=== PATIENT | female | born 1960 | race Caucasian/White ===

== ENCOUNTER 2016-10-04 12:23 | Day surgery (SDC) | payer OTHER ==
[~2016-10-04] VITALS: Ht 166.4 cm; Wt 78.0 kg
[2016-10-04] VITALS (7 sets, daily range): BP systolic 108–123; BP diastolic 66–71; PULSE 66–78; RESP 14–17; O2SAT 98–100
[~2016-10-04 12:23] MED LIST: ASPI-628 PO; CHOL200020 PO; GLUC100016 PO; IBUP200C PO; Lactated Ringer's 1,000 ML IV SCH
[2016-10-04] MEDS ORDERED: Propofol 10,000 mCg/mL 20 mL Inj ONE (12:24)
[2016-10-04] MEDS ORDERED: Lidocaine PF 1% 30 mL Inj ONE (12:24)
[2016-10-04] MEDS ORDERED: fentaNYL-PF 50 mCg/mL 2 mL Inj ONE (12:24)
[2016-10-04] MEDS ORDERED: Ondansetron 2 mg/mL 2 mL Inj ONE (12:24)
[2016-10-04] MEDS ORDERED: Lactated Ringer's 1,000 ML IV ONE (12:49)
[2016-10-04] MEDS ORDERED: Lactated Ringer's 1,000 ML IV SCH (12:58)
[2016-10-04] MEDS ORDERED: Lactated Ringer's 500 ML IV PRN (12:58)
[2016-10-04] MEDS ORDERED: fentaNYL-PF 50 mCg/mL 2 mL Inj IVPUSH PRN (13:00)
[2016-10-04] MEDS ORDERED: Atropine 0.4 mg/mL Inj IVPUSH PRN (13:00)
[2016-10-04] MEDS ORDERED: EPHEDrine Sulfate 50 mg/mL Inj IVPUSH PRN (13:00)
[2016-10-04] MEDS ORDERED: Dexamethasone 4 mg/mL Inj IVPUSH PRN (13:00)
[2016-10-04] MEDS ORDERED: HYDROmorphone 1 mg/mL Inj IVPUSH PRN (13:00)
[2016-10-04] MEDS ORDERED: Ondansetron 2 mg/mL 2 mL Inj IVPUSH PRN (13:00)
[2016-10-04] MEDS ORDERED: Labetalol 5 mg/mL 4 mL Inj IV PRN (13:00)
[2016-10-04] MEDS ORDERED: hydrALAZINE 20 mg/mL Inj IVPUSH PRN (13:00)
[2016-10-04] MEDS ORDERED: Phenylephrine 10,000 mCg/mL Inj IVPUSH PRN (13:00)
[2016-10-04] MEDS ORDERED: MetoCLOpramide 5 mg/mL 2 mL Inj IVPUSH PRN (13:00)
--- NOTE | 2016-10-04 13:24 | PCM.HPANE ---
Patient Data Date of Service: Oct 04, 2016 Surgeon Admitting Provider: Attending Provider:Troy Sanchez MD Primary Care Physician:Glenroy Miranda PA-C Other Provider:Dorinda Low Anesthesia Reason for Visit Right Neck Mass Ht/WT & BMI Height (Feet): 5 Height (Inches): 5.5 Weight (Kilograms): 78.018 Body Mass Index 28.00 Allergies Coded Allergies: No Known Allergies (Verified Allergy, Unknown, 04/19/14) Past Anesthesia History Anesthesia History: Denies:: Abnormal Airway, Anesthesia Reactions, Difficult Intubation, Fam Anesthesia Reaction, Fam Malignant Hypertherm, Malignant Hyperthermia Diabetes History Hx Diabetes?: No MRSA MRSA: No Medications Blood Thinner: Aspirin Hypertension Medication: No Home Meds Incl Beta Miroslava: No Reported Medications Aspirin (Aspir 81)81 Mg Tablet.dr81 Mg PO DAILY Ref 0 04/19/14 Ibuprofen 200 Mg Fdwjkpg802 Mg PO QID PRN For Pain Ref 0 04/19/14 Glucosamine Sulfate 2Kcl (Glucosamine)1,000 Mg Tablet1,000 Mg PO DAILY 04/19/14 Cholecalciferol (Vitamin D3) (Vitamin D-3)2,000 Unit Capsule2,000 Unit PO DAILY 04/19/14 History History of ENT Problems?: Yes HEENT History: Denies:: Abnormal Airway Cataracts (S/P EYE PROCEDURE) Difficult Intubation Hearing Problem Denture Type: None Teeth Condition: Within Normal Limits Hx of Heart Problems?: No Cardiovascular History: Denies:: Heart Murmur Hypertension Hx of Respiratory Problem?: Yes Respiratory History: Positive for:: Cough (recent URI) Denies:: Use of C-PAP Machine Hx Neurologic Problems?: No Neurological History: Denies:: CVA Hx of GI Problems?: Yes Other GI Pertinent History: C/OF IBS Hx of Problems?: No HX of Peritoneal Dialysis: No Female Hx: Denies:: Currently Skin History: Positive for:: History Skin Disorders? (OCCAS. RASH) Denies:: Pressure Ulcers Hx Musculoskeletal Problems?: Yes Musculoskeletal History: Positive for:: Musculoskeletal Trauma (S/P KNEE RPR' S X2) Denies:: Back Injury (C/OF LOWER BACK PAIN) Hx of Psycho/Social Problems?: No Hx Surgeries?: Yes (2 left knee,SPINE SURGERY,EYE PROCEDURE) Hx Any Other Health Problems?: Yes Other History: Denies:: Cancer Endocrine Disease Hospitalization Thyroid Disease Hx Diabetes: No Hx Alcohol Use: Yes (OCCAS)Hx Substance Use: No Smoking Status: Never Smoker Have You Smoked inLast 12 mo: No Stop/Bang Treated for Sleep Apnea?: No Do You Have a CPAP Machine?: No S-Snoring: Do You Snore Loudly: No T-Tired: feel tired, fatigued: No O-Obsered: Observed not breath: No P-Blood Pressure: treated: No B- Body Mass Index > 35 kg/m2: No A- Age over 50: Yes N- Neck Large Circumference: No G- Gender Male: No KADE Total Score: 1 KADE Risk Assessment: Low Risk, <3 Yes Risk Assessment Category Category 1A: Patient has history of documented sleep apnea, and HAS NOT received any narcotic, sedative or anesthesia administration during this stay. Category 1B: Patient has history of documented sleep apnea, and HAS received any narcotic , sedative or anesthesia administration during this stay Category 2: Patient has SUSPECTED Obstructive Sleep Apnea, and HAS received any narcotic , sedative or anesthesia administration during this stay. Category 3: Patient has SUSPECTED Obstructive Sleep Apnea and HAS NOT received narcotic, sedative or anesthesia administration during this stay. Category 4: Outpatient in Procedural Areas with known sleep apnea or who screen positive for High Risk via the STOP/BANG questionnaire. Exam Exam Vital Signs Vital Signs Date Time Temp Pulse Resp B/P Pulse Ox O2 Delivery O2 Flow Rate FiO2 10/04/16 12:46 36.2 74 14 108/70 99 Room Air General Appearance: Alert, Oriented X3, Cooperative HEENT/AIRWAY: MP 2, Neck Movement, Mouth Opening Lungs: Clear to Auscultation, Normal Air Movement Heart: Regular Rate/Rhythm, Normal S1, Normal S2 Meds/Labs/Diagnostics Admission Meds Current Medications Lactated Ringer's (Lr) 1,000 ml @ ud STK-MED ONCE IV Last administered on t 12:49; Start 10/04/16 at 12:49; Stop 10/04/16 at 12:50; Status DC Plan Impression Patient chart reviewed, patient interviewed and anesthestic plan with risks, benefits, and alternatives discussed, and informed consent obtained. ASA Physical Status: ASA2 Mod Systemic Disease Anesthetic Plan: GA Bene/Risks/Altern/Consents: Yes HP Complete Prior to Induction: Yes Octavio Tijerina MD Oct 04, 2016 12:57
[2016-10-04] MEDS ORDERED: Bupivacaine-MPF 0.25% 30 mL Inj INFILTRATE ONE (13:33)
[2016-10-04] MEDS ORDERED: oxyCODONE-Acetamin 5-325 mg Tablet PO PRN (14:25)
--- NOTE | 2016-10-04 23:16 | OP ---
[address] [address] OPERATIVE REPORT PATIENT: BHUPINDER FOOTE : 1960 MR#: [id number] ADMIT: 10/04/2016 JOB ID: [id number] DATE OF SURGERY: 10/04/2016 ANESTHESIA: General. PREOPERATIVE DIAGNOSIS(ES): Right cervical neck mass concerning for malignancy. POSTOPERATIVE DIAGNOSIS(ES): Right cervical neck mass concerning for malignancy. PROCEDURE: Excisional biopsy of right cervical neck mass. SURGEON: Dr. Troy Sanchez. RACING SECRETARY: Cristhian Fabian PA-C (the after school program assistant was required for the safe and timely completion of the case). COMPLICATIONS: None. ESTIMATED BLOOD LOSS: Less than 5 mL. CONDITION: Satisfactory. SPECIMEN: Right neck mass sent for cultures, flow cytometry, and gross tissue examination. FINDINGS: It appeared like this was probably a lymph node but was invasive to the surrounding tissue. It was adherent to the fascia of the sternocleidomastoid. INDICATIONS/SIGNIFICANT HISTORY: The patient is a 56-year-old female who about six weeks ago noted a right neck mass that she believes has been slowly growing. It was tender. It had not drained anything. An ultrasound was obtained by her PCP which showed a complex subcutaneous soft tissue mass measuring approximately 1 cm in size. No abnormal lymph nodes were identified. She was referred to me. By this time, it her grown some and she had no high-risk features for head and neck cancer, but given the appearance I was concerned and recommended biopsy. OPERATIVE TECHNIQUE: The patient was taken to the operating and placed in supine position. General anesthesia was administered. The right neck was prepped and draped in standard surgical fashion and a procedural pause was performed. Local anesthetic was injected. I made an approximately 3-4 cm incision directly over the mass in the natural skin crease. Dissection carried down through the skin. The mass was adherent to the skin. It was also adherent to the fascia of the right sternocleidomastoid. We used electrocautery to dissect this around and dissected it free. It was then sectioned and handed off for the various cultures and studies. The platysma was approximated with 3-0 Vicryl. The skin was closed using 4-0 Monocryl. Dermabond was applied. The entire procedure was well tolerated without complication. [facility]
--- NOTE | 2016-10-12 10:12 | PATH ---
SURGICAL PATHOLOGY Attending Physician:Troy Sanchez MD CASE STATUS: Signed Out PATIENT NAME: BHUPINDER FOOTE PID: [id number] : 1960 DATE COLLECTED:10/04/2016 00:00 SPECIMEN: Mass, NOS CLINICAL HISTORY: 1). RIGHT NECK MASS FINAL DIAGNOSIS: Preliminary Diagnosis (10/12/2016): Right neck mass, excisional biopsy: 1. Soft tissue with involvement by a large B-cell non-Hodgkin lymphoma with a high Bw-86-zsweylp proliferative rate (see Comments) 2. Adjacent serous salivary gland without morphologic abnormality Flow cytometric analysis ([id number]): Right neck mass, biopsy: Partially degenerate sample with no abnormal B-cell or T-cell population identified (see Flow Comments) ICD-10 code(s) C85.99 (non-Hodgkin lymphoma, unspecified; extranodal and solid organ sites) NOTE: Unstained sections of block A are being forwarded for FISH studies to evaluate for MYC, BCL2, and BCL6 gene rearrangements in this large B-cell lymphoma. An EBER1 in-situ hybridization study will also be performed on the tissue. A final diagnosis will be issued in an Addendum when these additional studies are completed. Flow cytometry Comments: No evidence of B-cell or T-cell non-Hodgkin lymphoma is identified by flow cytometry among the most viable cells. Note that T-cells comprise 97% of the viable lymphocytes in this specimen, with remarkably few convincing CD19+/CD20+ B-cells identified. Correlation with the concurrent tissue morphology is required for definitive diagnosis ([id number]). Note that Hodgkin lymphoma, certain non-Hodgkin lymphomas (e.g. T-cell/histiocyte-rich large B-cell lymphoma), and a non-hematopoietic neoplasm would not be detected by these flow cytometry studies. Flow cytometric analysis indicates that the viable leukocytes are essentially all lymphocytes, which include 0.3% B-cells and 97% T-cells. The rare mature B-cells have a normal kappa:lambda ratio of 1.1. The T-cells have a normal CD4:CD8 ratio of 1.7. GROSS DESCRIPTION: The specimen is received in formalin, labeled with the patient's name, sublabeled as right neck mass and consists of a piece of caro yellow rubbery tissue (2.5 x 1.7 x 1.3 cm). The cut surface is pale yellow semitranslucent and homogenous. Ink code: black-resection margin. Section code: (A-C) tissue, series sections. Specimen entirely submitted. 10/07/16 MICRO DESCRIPTION: H&E-stained sections of blocks A-C reveals portions of lobulated, serous salivary gland tissue without significant architectural distortion adjacent to fibroadipose, peripheral nerves, and skeletal muscle that is engulfed by an atypical, dense lymphoid infiltrate. There is no distinct tissue with architecture reminiscent of a lymph node in this specimen. The atypical lymphoid infiltrate is predominantly large in size, and diffusely scattered in a background of predominantly small to intermediate-sized lymphocytes. No nodular component is appreciated among the lymphocytes. The large atypical cells have variably open to coarse chromatin and one or more prominent nucleoli. The mitotic rate is brisk, and apoptotic cells are identified, but no zones of geographic necrosis are seen. There is no significant plasmacytic, eosinophilic, or neutrophilic inflammatory infiltrate. Select immunohistochemical studies were performed on block A for further evaluation. The large atypical cells are B-cells with uniform, strong expression of CD20, variable expression of Pax5, and uniform coexpression of bcl-2 and MUM1, with variable to uniform expression of bcl-6 (with variable intensity). The atypical B-cells are negative for CD5, CD10, CD30, and cyclin D1, and are also negative for p53 overexpression by immunohistochemistry. There is no definitive expression or restriction of either kappa or lambda light chains on the abnormal B-cells; and only rare plasma cells are evident in the background. The background smaller lymphocytes are CD3+/CD5+ T-cells. The Tp-08-sqvywlj proliferative rate among the abnormal B-cells is very high, estimated at greater than 95%. ICD-9 CODES: CPT CODES: 1: 06809, 47465, 78808(13) Electronically Signed Out Rani Michelle M.D.,[facility] [address], [place] [address] Technical component performed at [facility], [facility] [address], [place], [address]
== END 2016-10-04 23:59 | disposition home or self-care (01) ==
LOC: SAS 12:23
PROVIDERS: ATTEND General Practice
DX: C85.81 Other specified types of non-Hodgkin lymphoma, lymph nodes of head, face, and neck (principal)
CPT/HCPCS: 21550; 87070; 87075; 87077; 87186; 87205; 88184; 88185; J2250; J2405; J3010; J7120

== ENCOUNTER 2016-11-22 08:08 | Inpatient (IN) | payer OTHER ==
[2016-11-22] VITALS (15 sets, daily range): BP systolic 96–115; BP diastolic 60–80; PULSE 67–95; RESP 12–20; O2SAT 96–100
[~2016-11-22] VITALS: Ht 167.6 cm; Wt 75.5 kg
[~2016-11-22 08:08] MED LIST changes: -ASPI-628 PO; -CHOL200020 PO; -GLUC100016 PO; +GLUC500T12 PO; -IBUP200C PO; +LORA0.5T PO; -Lactated Ringer's 1,000 ML IV SCH; +MV-M1CAP15 PO; +OMEG1CAP99 PO; +TURM500C3 PO
[2016-11-22] MEDS ORDERED: Ondansetron 2 mg/mL 2 mL Inj IVPUSH PRN (08:30)
[2016-11-22] MEDS ORDERED: ACET-2766 PO (08:35)
--- NOTE | 2016-11-22 11:46 | NUR ---
Admit To OSC room 1028 at 08:15. Pastora Pinto, admit RN to complete admit med rec and admit process. Tosin Bolanos, chain maker machine in to answer pt questions about chemotherapy regimen. Pt to PICC suite at 11:47 for line placement.
[2016-11-22] MEDS ORDERED: Sodium Chloride LOK Flush 10 mL Syringe IVFLUSH PRN ×2 (12:30)
[2016-11-22] MEDS ORDERED: RITUXIMAB IV SCH (13:00)
[2016-11-22] MEDS ORDERED: SODIUM CHLORIDE 0.9% IV SCH ×2 (13:00)
[2016-11-22] MEDS ORDERED: ONDANSETRON IV SCH (13:00)
[2016-11-22] MEDS: 0.9% Sodium Chloride 1,000 ML IV SCH (13:10)
[2016-11-22] MEDS: predniSONE 20 mg Tablet PO SCH ×2 (13:11→20:53)
--- NOTE | 2016-11-22 14:17 | DRSVH ---
PROCEDURE: X-RAY PICC LINE PLACEMENT BY NURSE ([id number]) INDICATIONS: CHEMO COMPARISON: None. FINDINGS: PICC was placed by the intravenous therapy team from the left side. Fluoroscopic spot iris m demonstrates tip projected over the lower SVC. IMPRESSION: Tip of PICC projected over the lower SVC . Dictated by: Mike DAWSON Interpreted: Alejo Hernandez MD on 11/22/2016 at 13:24 Approved by: Alejo Hernandez M.D. on 11/22/2016 at 14:15
[2016-11-22] MEDS: Trimethoprim-Sulfa 160 mg-800 mg Tablet PO SCH (16:39)
--- NOTE | 2016-11-22 17:51 | PCM.HPMED ---
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 She is followed by Dr. Manley from oncology and is admitted today per Dr. Manley's recommendation with plan of moving forward with front-line therapy with dose adjusted R-EPOCH. Patient otherwise denies any issues or complaints other than a mild frontal headache and a little anxiety about the treatment but otherwise says feels upbeat and eager to start the treatment. Review of Systems: Constitutional: Negative, except as otherwise mentioned in the history above. Ophthalmologic: Negative, except as otherwise mentioned in the history above. Cardiovascular: Negative, except as otherwise mentioned in the history above. Respiratory: Negative, except as otherwise mentioned in the history above. Gastrointestinal: Negative, except as otherwise mentioned in the history above. Genitourinary: Negative, except as otherwise mentioned in the history above. Musculoskeletal: Negative, except as otherwise mentioned in the history above. Neurological: Negative, except as otherwise mentioned in the history above. Psychiatric: Negative, except as otherwise mentioned in the history above. Hematologic/Lymphatic: Negative, except as otherwise mentioned in the history above. Allergic/Immunologic: Negative, except as otherwise mentioned in the history above. Allergies Coded Allergies: No Known Allergies (Verified Allergy, Unknown, 11/22/16) Home Medications Acetaminophen 650 Mg PO DAILY Lorazepam 0.5 Mg PO QID PRN Exam Vital Signs & I/O Vital Sign- Last 8 Hours Date Time Temp Pulse Resp B/P Pulse Ox O2 Delivery O2 Flow Rate FiO2 11/22/16 17:43 36.8 91 18 106/60 98 Room Air 11/22/16 17:14 37.4 93 18 105/71 99 Room Air 11/22/16 16:42 36.8 91 16 102/72 99 Room Air 11/22/16 16:10 36.6 81 18 101/67 97 Room Air 11/22/16 15:47 36.7 81 18 110/73 98 Room Air 11/22/16 15:18 36.6 78 18 103/68 97 Room Air 11/22/16 14:35 83 11/22/16 14:28 36.9 82 18 115/80 98 Room Air 11/22/16 12:49 36.8 90 18 108/79 99 Room Air PMH 1. Diffuse large B-cell lymphoma, non germinal cell type, non double hit as noted in the HPI 2. Lower back pain secondary to degenerative joint disease, as well as a slipped disk. Surgical History 1. Laminectomy in the lower back in November 2015. 2. Bilateral knee surgery. Family History She has two children, a son age 27, a daughter age 25, both healthy. A sister and a brother who are otherwise healthy. Father from complications of head and neck cancer. He was a heavy smoker and drinker. Paternal grandfather with bone cancer, unknown primary. Paternal grandmother with ovarian cancer diagnosed in her 70s. Social History Hx Alcohol Use: No Hx Substance Use: No Hx Tobacco Use: No Smoking Status: Never Smoker Exam Vital Signs Vital Sign - Last Date Time Temp Pulse Resp B/P Pulse Ox O2 Delivery O2 Flow Rate FiO2 11/22/16 17:43 36.8 91 18 106/60 98 Room Air General: Alert, Oriented X3, Cooperative, No Acute Distress Head: Normal Eyes: PERRLA, EOMI, Scleral Anicteric Nose: Mucous Membr Moist/[place] Mouth: Mucous Membr Moist/[place] Neck: Supple Chest & Lungs: Chest Wall Normal, Clear to auscultation & percussion Cardiovascular: Regular Rate/Rhythm Pulses: NL carotid, radial, femoral, DP, PT Abdomen: Non-tender, Non-distended, Normoactive bowel tones, Soft Extremities: No cyanosis/clubbing/edma bilat Skin: Other (no ulcer/rash) Neurological: Grossly Neurologically Intact, Cranial Nerves 2-12 Intact, Normal Speech Additional Information: Psych: Calm and appropriate Lab and Diagnostics Additional Diagnostics: Date of Service: 11/22/16 1100 PROCEDURE: X-RAY PICC LINE PLACEMENT BY NURSE ([id number]) IMPRESSION: Tip of PICC projected over the lower SVC . Dictated by: Mike DAWSON Interpreted: Alejo Hernandez MD on 11/22/2016 at 13:24 Approved by: Alejo Hernandez M.D. 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 # Diffuse large B-cell lymphoma, present on admission. - Plan for dose adjusted R-EPOCH, cycle one, day one to be administered as an inpatient scheduled for November 22, 2016. - Plan to complete day five of therapy on November 26, 2016. - Continue with supportive care including ondansetron 8 mg IV q.12 h. as needed for nausea and the lorazepam 0.5 mg q. 6 hours as needed for anxiety. - Followup in the oncology clinic has been scheduled for November 27, 2016, at which time she will start her three days of Granix. - Clinic evaluation on November 28, 2016, for day two. - Followup repeat labs in am Expected length of hospital stay is greater than 2 midnights as noted above. GI Prophylaxis: Not indicated VTE Prophylaxis: Sub-Q Heparin (Unfractionated) Resuscitation Status: CPR: Attempt Resuscitation (discussed and verified with patient) Time spent 45 min Job Barclay Nov 22, 2016 17:51
[2016-11-22] MEDS ORDERED: Polyethylene Glycol (PEG) 17 Gm Powder PO PRN (18:10)
[2016-11-22] MEDS ORDERED: Alum-Mag Hydrox-Simeth 30 mL Suspension PO PRN (18:10)
[2016-11-22] MEDS: ONDANSETRON IV SCH (19:24)
[2016-11-22] MEDS: SODIUM CHLORIDE 0.9% IV SCH (19:24)
[2016-11-22] MEDS: DOXORUBICIN IV SCH (20:30)
[2016-11-22] MEDS: VINCRISTINE IV SCH (20:30)
[2016-11-22] MEDS: [UNRECOGNIZED DRUG - OTHER] IV SCH (20:30)
[2016-11-22] MEDS: ETOPOSIDE IV SCH (20:30)
[2016-11-22] MEDS: LORazepam 0.5 mg Tablet PO PRN (23:20)
[2016-11-23] VITALS (8 sets, daily range): BP systolic 91–104; BP diastolic 49–64; PULSE 59–92; RESP 16–20; O2SAT 96–99
[2016-11-23] MEDS: 0.9% Sodium Chloride 1,000 ML IV SCH ×2 (02:23→15:43)
--- NOTE | 2016-11-23 05:07 | NUR ---
Chemo Pt tolerating chemo infusion very well; Rituximab infusion finished at shift change, Vincristine/Etoposide/Doxirubicin verified and begun by 2029 for 24 hour infusion. 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 Pt has strong family support and positive attitude and experiencing some overwhelming sadness and anxiety related to treatment outcomes. Brisk blood return through newly placed PICC line, frequent rechecks show continued blood return. In am, pt notes slight SOB, faintly increased crackles bilateral lower lungs; will defer to am Md rounds for any change to fluid rate. Hourly rounding ongoing.
--- NOTE | 2016-11-23 05:31 | NUR ---
A-fib Tele monitor reported change in heart rhythm to a-fib rate at 69 by approx 0130. Pt reports being able to feel a faint irregularity and feels occasional urge for short, dry cough. She is able to confirm that she has felt this off and on over past several months but has not been under medical care for it, had not taken it to her primary care physician. In am reports mild SOB, "I just can't take as deep a breath as usual." Mild leg edema is decreased from night. Low B/P continues unchanged from baseline. Hourly rounding ongoing.
[2016-11-23 07:08] LABS: BASOPHILS % (AUTO) 0 % (0-3); EOSINOPHILS % (AUTO) 0.2 % (0-5); MONOCYTES % (AUTO) 4.6 % (4-12); Mean Corpuscular Hemoglobin 28.7 pg (27.0-35.0); Mean Corpuscular Volume 87.2 fL (81-100); NEUTROPHILS % (AUTO) 90.8 % (40-74); Platelet Count 132 bil/L (150-400)
[2016-11-23 07:38] LABS: Magnesium 2.3 mg/dL (1.6-2.6)
[2016-11-23] MEDS: TURMERIC ROOT EXTRACT 500 MG PO SCH (08:30)
[2016-11-23] MEDS: Omega-3 Fatty Acids 1,000 mg Capsule PO SCH ×2 (08:30→08:37)
[2016-11-23] MEDS: Trimethoprim-Sulfa 160 mg-800 mg Tablet PO SCH (08:37)
[2016-11-23] MEDS: predniSONE 20 mg Tablet PO SCH ×2 (08:38→20:52)
--- NOTE | 2016-11-23 09:10 | NUR ---
Tele/Activity Patient ambulating in halls at this time. science technicians notifies this RN that patient has sustained HR in 140's. MD notified. Patient back to room and HR decreased to 100's (108-111) at rest.
--- NOTE | 2016-11-23 15:55 | NUR ---
Social Work: Screening/Multidisciplinary Rounds D: EMR reviewed. Pt is a 56 y/o female admitted for scheduled chemo for B Cell Lymphoma per H&P. Pt's insurance is [facility] and PCP is Glenroy Miranda PA-C. Pt also sees Oncologist through [facility]. Pt does not screen in for assessment due to scheduled chemo. Pt's NOK is spouse Taz Duggan [phone]. Per multidisciplinary rounds, pt to discharge 11/26 after last chemo infusion. Per MD, no SW needs identified at this time - pt is scheduled to be here for infusion. Pt's spouse to provide transport home on 11/26. SW will continue to follow for any needs that may arise. A: Pt's capacity for self-care assessed: Pt is independent at baseline and no concerns identified for pt's capacity for self-care addressed in rounds. P: Pt to discharge home after last chemo infusion on 11/26 with spouse to provide transport via POV. SW will continue to follow for needs or MD orders. CATIA Vaughan
--- NOTE | 2016-11-23 16:52 | PCM.PNMED ---
Subjective Date of Service Nov 23, 2016 Subjective Reports anxiety. Otherwise denies any other new issues/complaints Exam Vital Signs Vital Sign - Last Date Time Temp Pulse Resp B/P Pulse Ox O2 Delivery O2 Flow Rate FiO2 11/23/16 12:46 36.6 75 18 94/63 99 Room Air Intake and Output 11/22/16 11/22/16 11/23/16 Cumulative From/Thru 15:00 23:00 07:00 11/22/16 08:32 - 11/23/16 06:12 Intake Total 520 ml 2671 ml 3191 ml Output Total 2100 ml 1900 ml 4000 ml Balance -1580 ml 771 ml -809 ml Intake Oral 520 ml 950 ml 1470 ml IV Total 1721 ml 1721 ml Output Urine Total 2100 ml 1900 ml 4000 ml # Voids 1 1 # Bowel Movements 1 1 Exam General: Alert, Cooperative, No Acute Distress Head: Normal Eyes: Scleral Anicteric Nose: Mucous Membr Moist/[place] Mouth: Mucous Membr Moist/[place] Neck: Supple Chest & Lungs: Chest Wall Normal, Clear to auscultation bilat Cardiovascular: Irreg/Irreg Pulses: NL carotid, radial, femoral, DP, PT Abdomen: Non-tender, Non-distended, Normoactive bowel tones, Soft Extremities: No cyanosis/clubbing/edema bilat Skin: Other (no ulcer/rash) Neurological: Grossly Neurologically Intact, Normal Speech Psych: Calm and appropriate IVs and Medications Medications Reviewed: Medications were reviewed in detail Lab and Diagnostics Result Diagram: 11/23/16 0640 11/23/16 0640 Additional Diagnostics Date of Service: 11/22/16 1100 PROCEDURE: X-RAY PICC LINE PLACEMENT BY NURSE ([id number]) IMPRESSION: Tip of PICC projected over the lower SVC . Dictated by: Mike Graves Heber Interpreted: Alejo Hernandez MD on 11/22/2016 at 13:24 Approved by: Alejo Hernandez M.D. 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 # Diffuse large B-cell lymphoma, present on admission. - Plan for dose adjusted R-EPOCH, cycle one, day one started on 11/22/16. - Plan to complete day five of therapy on November 26, 2016. - Continue with supportive care including ondansetron 8 mg IV q.12 h. as needed for nausea and the lorazepam 0.5 mg q. 6 hours as needed for anxiety. - Followup in the oncology clinic has been scheduled for November 27, 2016, at which time she will start her three days of Granix. - Clinic evaluation on November 28, 2016, for day two. - Followup repeat labs in am # Acute new onset A-fib. Not present on admission. - Patient notes that in retrospect she thinks may have had some symptoms of irregular heart rhythm in recent weeks - Had an echo on 11/09 so will not repeat at this time - ? need for CTA to rule out PE given likely hypercoagulable state - Will try to verify with oncology Dispo: 3 days GI Prophylaxis: Not indicated VTE Prophylaxis: Sub-Q Heparin (Unfractionated) Resuscitation Status: CPR: Attempt Resuscitation (discussed and verified with patient) Job Barclay Nov 23, 2016 16:52
[2016-11-23] MEDS: SODIUM CHLORIDE 0.9% IV SCH (20:28)
[2016-11-23] MEDS: ONDANSETRON IV SCH (20:28)
--- NOTE | 2016-11-23 20:43 | DRSVH ---
PROCEDURE: CT ANGIO CHEST PULMONARY EMBOLISM ([id number]) INDICATIONS: 56 year-old female on chemotherapy for lymphoma, with new onset atrial fibrillation. TECHNIQUE: After the administration of intravenous contrast, 2 mm thick sections acquired from the pulmonary api fernando to the posterior costophrenic angles. 3-dimensional maximum intensity projection (MIP) coronal a nd sagittal reformats were then acquired through the thorax. For radiation dose reduction, the follo wing was used: automated exposure control, adjustment of mA and/or kV according to patient size. COMPARISON: [facility], [place], PET NECK TO MID THIGH STD, 11/09/2016, 13:51. [facility], [place], US BX BREAST RIGHT 1ST LESION, 11/07/2016, 2:01 PM. [facility], [place], US FATOUMATA AST LTD RT, 11/05/2016, 15:13. [facility], , DIAGNOSTIC BILAT MAMMO, 11/05/2016, 14:57. FINDINGS: Image quality: Excellent. Pulmonary arteries: Pulmonary arteries are normal in size, and demonstrate no intraluminal filling d efects to suggest central pulmonary embolism. Lungs and pleura: Lungs are clear, except for patchy dependent atelectasis. No pleural effusions or pneumothorax. Central and peripheral airways are patent. Mediastinum: Left PICC is present and in expected position. Heart size is normal, without pericardia l effusion. No mediastinal or hilar adenopathy. Thoracic aorta is normal in caliber and enhancement . Esophagus is normal in caliber, without hiatal hernia. Bones and chest wall: Multiple variably-sized right breast masses are again noted. No suspicious bon y lesions. Ribs and thoracic spine appear intact throughout. Thyroid gland is normal in size but in completely visualized. No axillary or supraclavicular adenopathy. Abdomen: Visualized upper abdominal solid organs appear normal in the early arterial phase of enhanc ement. IMPRESSION: 1. No evidence for central pulmonary embolism. 2. Multiple right breast masses again noted, consistent with biopsy-proven lymphoma. Dictated by: Kaden Mena M.D. on 11/23/2016 at 20:32 Approved by: Kaden Mena M.D. on 11/23/2016 at 20:41
[2016-11-23] MEDS: [UNRECOGNIZED DRUG - OTHER] IV SCH (21:08)
[2016-11-23] MEDS: ETOPOSIDE IV SCH (21:08)
[2016-11-23] MEDS: VINCRISTINE IV SCH (21:08)
[2016-11-23] MEDS: DOXORUBICIN IV SCH (21:08)
[2016-11-23] MEDS: LORazepam 0.5 mg Tablet PO PRN (23:02)
[2016-11-24] VITALS (8 sets, daily range): BP systolic 91–110; BP diastolic 58–70; PULSE 62–100; RESP 16–20; O2SAT 98–100
--- NOTE | 2016-11-24 03:09 | NUR ---
Chemo / cardiac Assessment performed. Patient reports only pain in Rt breast rated 3-4 Known mass area visualized and slightly pink. Area outlined with sterile marker. VSS, labs reviewed. States pain at a tolerable level. Call placed to Tele monitor prior to chemo start. Currently in A-fib with PVC and HR 92. Report from Day RN that MD is aware and to continue with chemo.
--- NOTE | 2016-11-24 03:19 | NUR ---
Chemo / cardiac IV picc line with brisk blood return. Patient premedicated with 16mg IV Zofran as per order. Chemo started at 2100 with double check performed with discharge coordinatorDIPESH Matthews.
--- NOTE | 2016-11-24 03:22 | NUR ---
Chemo / cardiac. Notified by central services tech at 0135 that patient has had 2 episodes of V-tach each 5 seconds length. Patient examined and states she feels her heart pound but denies pain. Call placed to hospitalist team which refers me to oncology. Dr Obrien notified and orders received to stop chemo now. and resume in 6 hrs only if patient back in sinus rhythm. Traponin level drawn and sent with repeat draw again in 6 hrs. Chemo stopped at 0155. debt and budget counselor on cardiac floor notified and requested the addition of magnesium and potassium levels be added to lab draw. Labs sent. Per Dr. Obrien; patient may need cardiology consult. Currently patient in A-fib with HR 60's. No further V-tach reported. Will notify MD of any further changes.
[2016-11-24 04:22] LABS: Magnesium 2.3 mg/dL (1.6-2.6)
[2016-11-24] MEDS: 0.9% Sodium Chloride 1,000 ML IV SCH ×2 (05:34→17:20)
[2016-11-24 05:37] LABS: BASOPHILS % (AUTO) 0 % (0-3); EOSINOPHILS % (AUTO) 0 % (0-5); MONOCYTES % (AUTO) 2.5 % (4-12); Mean Corpuscular Hemoglobin 28.6 pg (27.0-35.0); Mean Corpuscular Volume 87.3 fL (81-100); NEUTROPHILS % (AUTO) 95.3 % (40-74); Platelet Count 147 bil/L (150-400)
[2016-11-24 05:57] LABS: INR 1.06 ratio
[2016-11-24] MEDS: TURMERIC ROOT EXTRACT 500 MG PO SCH (08:30)
[2016-11-24] MEDS: Omega-3 Fatty Acids 1,000 mg Capsule PO SCH (08:30)
[2016-11-24] MEDS: Trimethoprim-Sulfa 160 mg-800 mg Tablet PO SCH (09:24)
[2016-11-24] MEDS: predniSONE 20 mg Tablet PO SCH ×2 (09:25→20:46)
--- NOTE | 2016-11-24 12:16 | NUR ---
CHEMO RESTART Dr Obrien notified of pt still being in Afib at 8am, no new runs of V-tach. Order to restart chemo. Pharmacy received order to increase rate of chemo so as to have current bag finish at 9pm. Pt having no ill effets, or feeling any chest pain. Up sitting in chair and ambulating in hallway. Heart rate remaining 50-90's afib.
--- NOTE | 2016-11-24 16:58 | PCM.PNMED ---
Subjective Date of Service Nov 24, 2016 Subjective Denies any new issues/complaints. Per nursing chemo was briefly held last night due to patient noted to have VT on tele. Exam Vital Signs Vital Sign - Last Date Time Temp Pulse Resp B/P Pulse Ox O2 Delivery O2 Flow Rate FiO2 11/24/16 13:47 36.6 86 18 95/63 99 Room Air Intake and Output 11/23/16 11/23/16 11/24/16 Cumulative From/Thru 15:00 23:00 07:00 11/22/16 08:32 - 11/24/16 06:05 Intake Total 1300 ml 1260 ml 5751 ml Output Total 2000 ml 6000 ml Balance -700 ml 1260 ml -249 ml Intake Oral 1300 ml 2770 ml IV Total 1260 ml 2981 ml Output Urine Total 2000 ml 6000 ml # Voids 1 # Bowel Movements 1 Exam General: Alert, Cooperative, No Acute Distress Head: Normal Eyes: Scleral Anicteric Nose: Mucous Membr Moist/[place] Mouth: Mucous Membr Moist/[place] Neck: Supple Chest & Lungs: Chest Wall Normal, Clear to auscultation bilat Cardiovascular: Irreg/Irreg Pulses: NL carotid, radial, femoral, DP, PT Abdomen: Non-tender, Non-distended, Normoactive bowel tones, Soft Extremities: No cyanosis/clubbing/edema bilat Skin: Other (no ulcer/rash) Neurological: Grossly Neurologically Intact, Normal Speech Psych: Calm and appropriate IVs and Medications Medications Reviewed: Medications were reviewed in detail Lab and Diagnostics Result Diagram: 11/24/16 0525 11/24/16 1042 Additional Diagnostics Date of Service: 11/22/16 1100 PROCEDURE: X-RAY PICC LINE PLACEMENT BY NURSE ([id number]) IMPRESSION: Tip of PICC projected over the lower SVC . Dictated by: Mike Graves [place] Interpreted: Alejo Hernandez MD on 11/22/2016 at 13:24 Approved by: Alejo Hernandez M.D. 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 # Diffuse large B-cell lymphoma, present on admission. - Plan for dose adjusted R-EPOCH, cycle one, day one started on 11/22/16. - Plan to complete day five of therapy on November 26, 2016. - Continue with supportive care including ondansetron 8 mg IV q.12 h. as needed for nausea and the lorazepam 0.5 mg q. 6 hours as needed for anxiety. - Followup in the oncology clinic has been scheduled for November 27, 2016, at which time she will start her three days of Granix. - Clinic evaluation on November 28, 2016, for day two. - Followup repeat labs in am # Acute new onset A-fib. Not present on admission. - Patient notes that in retrospect she thinks may have had some symptoms of irregular heart rhythm in recent weeks - Had an echo on 11/09 so will not repeat at this time - CTA on 11/23/16 ruled out PE - Discussed with Dr. Obrien (oncology) on 11/24/16 who plans to discuss with cardiology regarding continuing chemo given afib and arrhythmia. Dispo: 2 days GI Prophylaxis: Not indicated VTE Prophylaxis: Sub-Q Heparin (Unfractionated) Resuscitation Status: CPR: Attempt Resuscitation (discussed and verified with patient) Job Barclay Nov 24, 2016 16:58
[2016-11-24] MEDS: LORazepam 0.5 mg Tablet PO PRN (22:08)
[2016-11-24] MEDS: SODIUM CHLORIDE 0.9% IV SCH (22:10)
[2016-11-24] MEDS: ONDANSETRON IV SCH (22:10)
[2016-11-24] MEDS: DOXORUBICIN IV SCH (23:17)
[2016-11-24] MEDS: VINCRISTINE IV SCH (23:17)
[2016-11-24] MEDS: ETOPOSIDE IV SCH (23:17)
[2016-11-24] MEDS: [UNRECOGNIZED DRUG - OTHER] IV SCH (23:17)
[2016-11-25] VITALS (8 sets, daily range): BP systolic 94–107; BP diastolic 58–70; PULSE 53–76; RESP 16–20; O2SAT 97–100
--- NOTE | 2016-11-25 01:41 | NUR ---
chemo Continues in A-fib but denies chest pain. Picc line with brisk blood return, VSS. Premedicated with 16mg's IV Zofran prior to Chemo. No nausea - eating evening snack. Chemo started at 2300. Ativan given at HS for moderate anxiety related to situational crisis. Tearful at times.
[2016-11-25] MEDS: 0.9% Sodium Chloride 1,000 ML IV SCH (06:40)
[2016-11-25 07:39] LABS: BASOPHILS % (AUTO) 0 % (0-3); EOSINOPHILS % (AUTO) 0 % (0-5); MONOCYTES % (AUTO) 4.3 % (4-12); Mean Corpuscular Hemoglobin 28.5 pg (27.0-35.0); NEUTROPHILS % (AUTO) 92.4 % (40-74); Platelet Count 161 bil/L (150-400)
[2016-11-25] MEDS: Omega-3 Fatty Acids 1,000 mg Capsule PO SCH (08:30)
[2016-11-25] MEDS: TURMERIC ROOT EXTRACT 500 MG PO SCH (08:30)
[2016-11-25] MEDS: Trimethoprim-Sulfa 160 mg-800 mg Tablet PO SCH (10:04)
[2016-11-25] MEDS: predniSONE 20 mg Tablet PO SCH ×2 (10:04→20:33)
--- NOTE | 2016-11-25 16:17 | PCM.PNMED ---
Subjective Date of Service Nov 25, 2016 Subjective Denies any new issues/complaints. Exam Vital Signs Vital Sign - Last Date Time Temp Pulse Resp B/P Pulse Ox O2 Delivery O2 Flow Rate FiO2 11/25/16 10:48 53 18 107/70 100 Room Air 11/25/16 06:36 36.4 Intake and Output 11/24/16 11/24/16 11/25/16 Cumulative From/Thru 15:00 23:00 07:00 11/22/16 08:32 - 11/25/16 06:37 Intake Total 800 ml 900 ml 3496 ml 78897 ml Output Total 1700 ml 1100 ml 2650 ml 21907 ml Balance -900 ml -200 ml 846 ml -503 ml Intake Oral 800 ml 900 ml 1200 ml 5670 ml IV Total 2296 ml 5277 ml Output Urine Total 1700 ml 1100 ml 2650 ml 02693 ml # Voids 3 4 8 # Bowel Movements 0 0 0 1 Exam General: Alert, Cooperative, No Acute Distress Head: Normal Eyes: Scleral Anicteric Nose: Mucous Membr Moist/[place] Mouth: Mucous Membr Moist/[place] Neck: Supple Chest & Lungs: Chest Wall Normal, Clear to auscultation bilat Cardiovascular: Irreg/Irreg Pulses: NL DP, PT Abdomen: Non-tender, Non-distended, Normoactive bowel tones, Soft Extremities: No cyanosis/clubbing/edema bilat Neurological: Grossly Neurologically Intact, Normal Speech Psych: Calm and appropriate IVs and Medications Medications Reviewed: Medications were reviewed in detail Lab and Diagnostics Result Diagram: 11/25/16 0600 11/25/16 0600 Additional Diagnostics Date of Service: 11/22/16 1100 PROCEDURE: X-RAY PICC LINE PLACEMENT BY NURSE ([id number]) IMPRESSION: Tip of PICC projected over the lower SVC . Dictated by: Mike Graves [facility] Interpreted: Alejo Hernandze MD on 11/22/2016 at 13:24 Approved by: Alejo Hernandez M.D. 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 # Diffuse large B-cell lymphoma, present on admission. - Plan for dose adjusted R-EPOCH, cycle one, day one started on 11/22/16. - Plan to complete day five of therapy on November 26, 2016. - Continue with supportive care including ondansetron 8 mg IV q.12 h. as needed for nausea and the lorazepam 0.5 mg q. 6 hours as needed for anxiety. - Followup in the oncology clinic has been scheduled for November 27, 2016, at which time she will start her three days of Granix. - Clinic evaluation on November 28, 2016, for day two. - Followup repeat labs in am # Acute new onset A-fib. Not present on admission. - Patient notes that in retrospect she thinks may have had some symptoms of irregular heart rhythm in recent weeks - Had an echo on 11/09 so will not repeat at this time - CTA on 11/23/16 ruled out PE - Discussed with Dr. Obrien (oncology) on 11/24/16 who planned to discuss with cardiology regarding continuing chemo given afib and arrhythmia. Dispo: 1 day GI Prophylaxis: Not indicated VTE Prophylaxis: Sub-Q Heparin (Unfractionated) Resuscitation Status: CPR: Attempt Resuscitation (discussed and verified with patient) Job Barclay Nov 25, 2016 16:16
--- NOTE | 2016-11-25 19:26 | NUR ---
CHEMO/ANXIETY Patient with new diagnosis of B cell lymphoma here for chemotherapy. Patient receiving Etoposide 90 mg, doxorubicin 18 mg and vincristine 0.7 mg IV over 24 hours at a rate of 20.8 mls/hr. Patient with anxiety regarding chemo and diagnosis. We spent time talking about meds and life changes if needed, signs and symptoms to report . Patient remains in A fib on telemetry . Patient up ambulating frequently.
[2016-11-25] MEDS ORDERED: ONDANSETRON IV ONE (21:55)
[2016-11-25] MEDS ORDERED: SODIUM CHLORIDE 0.9% IV ONE (21:55)
[2016-11-25] MEDS: ONDANSETRON IV SCH (23:23)
[2016-11-25] MEDS: SODIUM CHLORIDE 0.9% IV SCH (23:23)
[2016-11-25] MEDS: [UNRECOGNIZED DRUG - OTHER] IV SCH (23:50)
[2016-11-25] MEDS: DOXORUBICIN IV SCH (23:50)
[2016-11-25] MEDS: VINCRISTINE IV SCH (23:50)
[2016-11-25] MEDS: ETOPOSIDE IV SCH (23:50)
[2016-11-25] MEDS: LORazepam 0.5 mg Tablet PO PRN (23:53)
[2016-11-26] VITALS (8 sets, daily range): BP systolic 93–118; BP diastolic 54–76; PULSE 55–102; RESP 16–18; O2SAT 97–100
[2016-11-26] MEDS: 0.9% Sodium Chloride 1,000 ML IV SCH ×3 (03:34→16:52)
--- NOTE | 2016-11-26 04:45 | NUR ---
Chemo / edema Tolerating chemo without changes. Brisk blood return via PICC line. Zofran given and last bag of Etoposide/Doxorubicin/Vincristine chemo infusion started at midnight. Tele monitoring continues; one episode of bradycardia reported, pt continues to be in a-fib. Edema up both legs had increased through day, during night spontaneous diuresis with over 3L urine. Significant decrease in edema. Hourly rounding ongoing. Addendum: 11/26/16 at 0523 by MARIBELL ESPINOZA RN Occasional repeat of bradycardia, very brief episodes with spontaneous return to mid-50-60s. Addendum: 11/26/16 at 0528 by MARIBELL ESPINOZA RN Hospitalist notified of luis episodes.
[2016-11-26 06:40] LABS: BASOPHILS % (AUTO) 0 % (0-3); EOSINOPHILS % (AUTO) 0 % (0-5); MONOCYTES % (AUTO) 2.8 % (4-12); Mean Corpuscular Hemoglobin 29.1 pg (27.0-35.0); Platelet Count 159 bil/L (150-400)
[2016-11-26] MEDS: Omega-3 Fatty Acids 1,000 mg Capsule PO SCH (08:30)
[2016-11-26] MEDS: TURMERIC ROOT EXTRACT 500 MG PO SCH (08:30)
[2016-11-26] MEDS: predniSONE 20 mg Tablet PO SCH ×2 (09:33→21:17)
[2016-11-26] MEDS: Trimethoprim-Sulfa 160 mg-800 mg Tablet PO SCH (09:33)
[2016-11-26] MEDS ORDERED: Palonosetron 0.05 mg/mL 5 mL Inj IV ONE (12:00)
[2016-11-26] MEDS ORDERED: CYCLOPHOSPHAMIDE IV ONE (15:00)
[2016-11-26] MEDS ORDERED: [UNRECOGNIZED DRUG - OTHER] IV ONE (15:00)
--- NOTE | 2016-11-26 17:13 | PROG NOTE ---
[address] [address] PROGRESS NOTE PATIENT: BHUPINDER FOOTE : 1960 MR#: [id number] ADMIT: 11/22/2016 JOB ID: [id number] DATE: 11/26/2016 SUBJECTIVE: The patient is being seen today per hospital rounds. She carries a diagnosis of diffuse large B-cell lymphoma, nongerminal B-cell subtype [id number]. The patient is currently on cycle one, day five of her front line, dose adjusted, R-EPOCH regimen. Clinically, she has tolerated her therapy without significant symptoms. Specifically, she has had no significant nausea, constipation, numbness or tingling, chest pains or shortness of breath. The patient did develop atrial fibrillation on November 15, 2016 identified at 9 o'clock in the morning with a maximum heart rate of 140, dropping down to 69 by later that day. As part of her workup, she had a CTA of the chest dated November 23, 2016 showing no evidence of central pulmonary emboli. The patient had a documented episode of V-tach each lasting 5 seconds at approximately 03:22 in the morning on November 24, 2016. No further incidences since. PHYSICAL EXAMINATION: Vital signs today showing a weight of 76.4 kg, blood pressure 108/72, temperature 36, pulse 79, respiratory rate 16, she is satting at 99% on room air. She is A and O x3. In good spirits overall. Affect appropriate. PERRLA. Anicteric. LABORATORY DATA: Reporting a white cell count of 3.6, hemoglobin 10.1, platelet count of 159. Sodium 141, potassium 4, serum creatinine 0.57, AST 24, ALT 31, alk phos 60. ASSESSMENT AND PLAN: The patient is a very pleasant, 56-year-old female with an underlying diagnosis of diffuse large B-cell lymphoma with a potentially aggressive subtype, as described above. The patient is completing day five of frontline dose adjusted R-EPOCH. Treatments clinically have been well managed without significant symptoms, however, she has documented atrial fibrillation, rate controlled, with a CHADS2 score of 0, predicting an unadjusted ischemic stroke rate at 0.6% per year. The patient should be placed on aspirin 81 mg at the time of discharge. In addition, cardiology consult as an outpatient would be appropriate which will be made today. Consideration for placing her on a beta dora and LUCIA inhibitor as an outpatient would also be appropriate. Plan at this time is to continue with her dose adjusted R-EPOCH. She will complete her continuous infusion at approximately 12 midnight. She will then have her day five cyclophosphamide tomorrow morning. The patient should continue with a daily CBC, CMP and be discharged after her cyclophosphamide. She will need to take prednisone 60 mg dose in the evening. A script will be provided to her today. Follow up in our clinic has been scheduled for November 28, 2016. Labs include a CBC, CMP, and she will start her Neupogen at that time. She otherwise had no further questions. For documentation purposes only, approximately 40 minutes spent on today's visit.
--- NOTE | 2016-11-26 17:30 | PCM.PNMED ---
Subjective Date of Service Nov 26, 2016 Subjective Denies any new issues/complaints. Exam Vital Signs Vital Sign - Last Date Time Temp Pulse Resp B/P Pulse Ox O2 Delivery O2 Flow Rate FiO2 11/26/16 15:01 36.5 79 16 108/72 99 Room Air Intake and Output 11/25/16 11/25/16 11/26/16 Cumulative From/Thru 15:00 23:00 07:00 11/22/16 08:32 - 11/26/16 06:40 Intake Total 800 ml 3158 ml 57244 ml Output Total 1100 ml 3200 ml 81792 ml Balance -300 ml -42 ml -845 ml Intake Oral 800 ml 800 ml 7270 ml IV Total 2358 ml 7635 ml Output Urine Total 1100 ml 3200 ml 73987 ml # Voids 8 # Bowel Movements 1 2 Exam General: Alert, Cooperative, No Acute Distress Head: Normal Eyes: Scleral Anicteric Nose: Mucous Membr Moist/[employer] Mouth: Mucous Membr Moist/[employer] Neck: Supple Chest & Lungs: Chest Wall Normal, Clear to auscultation bilat Cardiovascular: Irreg/Irreg Pulses: NL DP, PT Abdomen: Non-tender, Non-distended, Normoactive bowel tones, Soft Extremities: No cyanosis/clubbing/edema bilat Neurological: Grossly Neurologically Intact, Normal Speech Psych: Calm and appropriate IVs and Medications Medications Reviewed: Medications were reviewed in detail Lab and Diagnostics Result Diagram: 11/26/16 0540 11/26/16 0540 Additional Diagnostics Date of Service: 11/22/16 1100 PROCEDURE: X-RAY PICC LINE PLACEMENT BY NURSE ([id number]) IMPRESSION: Tip of PICC projected over the lower SVC . Dictated by: Mike Graves [facility] Interpreted: Alejo Hernandez MD on 11/22/2016 at 13:24 Approved by: Alejo Hernandez M.D. 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 # Diffuse large B-cell lymphoma, present on admission. - Plan for dose adjusted R-EPOCH, cycle one, day one started on 11/22/16. - Plan to complete day five of therapy - Continue with supportive care including ondansetron 8 mg IV q.12 h. as needed for nausea and the lorazepam 0.5 mg q. 6 hours as needed for anxiety. - She will complete her continuous infusion at approximately 12 midnight. - Day five cyclophosphamide tomorrow morning. - Continue daily CBC, CMP - Prednisone 60 mg dose in the evening upon discharge - Follow up in oncology clinic has been scheduled for November 28, 2016. Start her Neupogen at that time. # Acute new onset A-fib. Not present on admission. Ongoing but rate controlled - Patient notes that in retrospect she thinks may have had some symptoms of irregular heart rhythm in recent weeks - Had an echo on 11/09 so will not repeat at this time - CTA on 11/23/16 ruled out PE - CHADS2 score of 0 - Per oncology recommendation to be placed on aspirin 81 mg at the time of discharge. - Cardiology consult as an outpatient to be arranged by Dr. Manley/Oncology - No BB or LUCIA-I started at this time given slow heart rate and tenuous BP Dispo: Likely home in am GI Prophylaxis: Not indicated VTE Prophylaxis: Sub-Q Heparin (Unfractionated) Resuscitation Status: CPR: Attempt Resuscitation (discussed and verified with patient) Job Barclay Nov 26, 2016 17:30
--- NOTE | 2016-11-26 17:44 | NUR ---
Social Work: Readiness for Discharge/Multidisciplinary Rounds D: EMR reviewed. Pt is on day 4 of hospitalization for scheduled chemo infusion. Pt discussed in multidisciplinary rounds, pt anticipated to discharge 8 after receiving last chemo infusion this evening. No SW needs identified. No MD orders received. SW will continue to follow pt for needs. A: Pt who is independent at baseline P: Pt anticipated to discharge home tomorrow with spouse to transport via POV. No SW needs identified. No MD orders received. SW will continue to follow pt for needs. CATIA Vaughan
--- NOTE | 2016-11-26 18:04 | NUR ---
Chemo/anxiety/emotions Patient continues on her chemo infusion of Etoposide 90 mg, Doxrubicin 18 mg and Vincristine 0.7 mg 24 infusion at 21 mls hr. Picc line patent with brisk blood return. Patient with high anxiety regarding new diagnosis and chemo infusions. Patient voiced concerns and asked questions as needed. Patient teary eyed this afternoon reassured patient this is a natural response to this new diagnosis. Patient continues with Afib on Telemetry . Patient will have cardiology consult as out patient per Dr Manley who was here and informed patient. patient to have her Cyclophosphamide tomorrow am then be discharged home. Patient did complain of sore/ uncomfortable swallowing throat today.
[2016-11-26] MEDS: LORazepam 0.5 mg Tablet PO PRN (23:33)
--- NOTE | 2016-11-27 04:06 | NUR ---
Chemo Tolerated chemo infusion without reaction, ended about midnight. IV fluids continue through night, final chemo scheduled for am. Per tele monitor, no new ectopy, remains in a-fib. Pt able to rest fairly well, continues with high urine output. Hourly rounding ongoing.
[2016-11-27 05:15] VITALS: BP 95/60; PULSE 63; RESP 16; O2SAT 96
[2016-11-27 05:25] LABS: BASOPHILS % (AUTO) 0 % (0-3); EOSINOPHILS % (AUTO) 0 % (0-5); MONOCYTES % (AUTO) 1.6 % (4-12); Mean Corpuscular Hemoglobin 28.9 pg (27.0-35.0); Mean Corpuscular Volume 85.7 fL (81-100); NEUTROPHILS % (AUTO) 95.4 % (40-74); Platelet Count 220 bil/L (150-400)
[2016-11-27] MEDS: 0.9% Sodium Chloride 1,000 ML IV SCH (06:07)
[2016-11-27] MEDS ORDERED: Palonosetron 0.05 mg/mL 5 mL Inj IV ONE (07:45)
[2016-11-27] MEDS ORDERED: [UNRECOGNIZED DRUG - OTHER] IV ONE (08:00)
[2016-11-27] MEDS ORDERED: CYCLOPHOSPHAMIDE IV ONE (08:00)
[2016-11-27] MEDS: Omega-3 Fatty Acids 1,000 mg Capsule PO SCH (08:30)
[2016-11-27] MEDS: Trimethoprim-Sulfa 160 mg-800 mg Tablet PO SCH (08:40)
[2016-11-27 09:55] VITALS: BP 108/72; PULSE 77; RESP 18; O2SAT 100
[2016-11-27 10:09] VITALS: BP 116/63; PULSE 69; RESP 16; O2SAT 99
[2016-11-27 10:22] VITALS: PULSE 90
[2016-11-27 10:35] VITALS: BP 109/70; PULSE 65; RESP 18; O2SAT 100
--- NOTE | 2016-11-27 11:01 | PCM.DIMED ---
Discharge Instructions Date of Service Nov 27, 2016 Dates of Hospitalization Nov 22, 2016 at 08:08 Discharge Diagnosis Discharge Diagnosis # Diffuse large B-cell lymphoma, present on admission. # Acute new onset A-fib. Not present on admission. Ongoing but rate controlled Diet Discharge Diet: Low fat, Low Sodium Activity Discharge Activity: No restrictions Call your provider Call your provider for: Fever or Chills, Shortness of breath, Bleeding, Chest pain, Vomitting, Excessive diarrhea, Weakness (unilateral) Patient Instructions Patient Instructions You were hospitalized for chemotherapy for B-cell lymphoma.You completed chemotherapy cycle and tolerated well.Please follow up with your oncologist tomorrow 11/28 for GSCF injection .You have new onset atrial fibrillation. Please follow-up with disability specialist outpatient. Follow-up Provider: Arsh Manley DO Follow-up with PCP in: 1 week (11/28/16) Presley Cohen MD Nov 27, 2016 11:01
[2016-11-27] MEDS ORDERED: PRED50TA PO ×2 (11:03→11:19)
[2016-11-27] MEDS ORDERED: ASPI-973 PO (11:44)
--- NOTE | 2016-11-27 12:08 | NUR ---
Social Work- Discharge/Multidisciplinary Rounds Data: EMR reviewed. Pt is on day 5 of hospitalization for B Cell Lymphona per H&P. Pt discussed in multidisciplinary rounds, pt is medically stable for discharge after her chemo today. SW met with pt at bedside regarding discharge plan. Pt to discharge home with to transport via POV. No discharge needs identified. All updated and agreeable to plan. Assessment: Pt who is independent at baseline. Plan: Pt to discharge home with to transport via POV. No discharge needs identified. All updated and agreeable to plan. Amrita Waldron, PROCESS EQUIPMENT OPERATOR
--- NOTE | 2016-11-27 12:35 | NUR ---
Discharge Pt discharged to home s/p Cytoxan infusion; completed cycle one at 1030 - tolerated without issue. A&Ox3, BURNS, Single lumen PICC CDI and SL with sleeve over the top of site, All personal belongings in hand at dc, Scripts faxed to pt pharmacy prior to DC - hard copy scripts with pt, No questions concerns left unanswered at time of dc, Care Notes and instructions provided on dc dx, s/sx to seek medical attention for, how to care for PICC at home and self-care for the next 48hrs s/p chemotherapy. Pt stating understanding and pt encouraged to read over additional reading materials provided to her. Family present and pt walked off unit to vehicle at 1235. Pt also aware of f/u appointment with Dr. Manley on 11/28.
--- NOTE | 2016-11-27 14:17 | PCM.DC.MED ---
Discharge Summary Date of Service Nov 27, 2016 Dates of Hospitalization Date of Hospital Admission Nov 22, 2016 at 08:08 Date of Discharge: Nov 27, 2016 Providers: Admitting Physician: Jesse Pena MD Primary Care Physician: Glenroy Miranda PA-C Attending Physician: Presley Amador MD Diagnosis at Time of Discharge Diagnosis at Time of Discharge # Diffuse large B-cell lymphoma, present on admission. # Acute new onset A-fib. Not present on admission. Ongoing but rate controlled Consultations Oncology Dr. Manley Procedures ECG 12 Lead PROCEDURE: CT ANGIO CHEST PULMONARY EMBOLISM ([id number]) INDICATIONS: 56 year-old female on chemotherapy for lymphoma, with new onset atrial fibrillation. IMPRESSION: 1. No evidence for central pulmonary embolism. 2. Multiple right breast masses again noted, consistent with biopsy-proven lymphoma. Dictated by: Kaden Mena M.D. on 11/23/2016 at 20:32 Other Diagnostics Date of Service: 11/22/16 1100 PROCEDURE: X-RAY PICC LINE PLACEMENT BY NURSE ([id number]) IMPRESSION: Tip of PICC projected over the lower SVC . Dictated by: Mike Graves RRA Interpreted: Alejo Hernandez MD on 11/22/2016 at 13:24 Approved by: Alejo Hernandez M.D. on 11/22/2016 at 14:15 Brief History per HPI 56-year-old generally healthy female with recent diagnosis of diffuse large B- cell lymphoma, non germinal cell type, non double hit that was diagnosed after noticing a lump on the right side of her neck about 2-3 months ago. She is followed by Dr. Manley from oncology and is admitted today per Dr. Manley's recommendation with plan of moving forward with front-line therapy with dose adjusted R-EPOCH. Patient otherwise denies any issues or complaints other than a mild frontal headache and a little anxiety about the treatment but otherwise says feels upbeat and eager to start the treatment. Hospital Course 56-year-old female with recent diagnosis of diffuse large B-cell lymphoma, non germinal cell type, non double hit admitted with plan for front-line therapy with dose adjusted R-EPOCH. # Diffuse large B-cell lymphoma, present on admission. - R-EPOCH, cycle one, day one started on 11/22/16. Completed 11/27 - Day five cyclophosphamide today - Prednisone 60 mg dose in the evening tonight. - Follow up in oncology clinic has been scheduled for November 28, 2016. Start her Neupogen at that time. # Acute new onset A-fib. Not present on admission. Ongoing but rate controlled - Patient notes that in retrospect she thinks may have had some symptoms of irregular heart rhythm in recent weeks - Had an echo on 11/09 so will not repeat at this time - CTA on 11/23/16 ruled out PE - CHADS2 score of 0 - Per oncology recommendation to be placed on aspirin 81 mg at the time of discharge. - Cardiology consult as an outpatient to be arranged by Dr. Manley/Oncology - No BB or LUCIA-I started at this time given slow heart rate and tenuous BP Dispo: Discharge home Condition on discharge stable Exam Vital Signs (Last) Date Time Temp Pulse Resp B/P Pulse Ox O2 Delivery O2 Flow Rate FiO2 11/27/16 10:35 36.6 65 18 109/70 100 Room Air Exam General: Alert, Cooperative, No Acute Distress Head: Normal Eyes: Scleral Anicteric Nose: Mucous Membr Moist/[place] Mouth: Mucous Membr Moist/[place] Neck: Supple Chest & Lungs: Chest Wall Normal, Clear to auscultation bilat Cardiovascular: Irreg/Irreg Pulses: NL DP, PT Abdomen: Non-tender, Non-distended, Normoactive bowel tones, Soft Extremities: No cyanosis/clubbing/edema bilat Neurological: Grossly Neurologically Intact, Normal Speech Psych: Calm and appropriate Test 11/24/16 02:15 11/24/16 05:25 11/24/16 10:42 11/25/16 06:00 Magnesium Level 2.3mg/dL (1.6-2.6) Prothrombin Time 11.4sec (8.1-12.5) Prothromb Time International Ratio 1.06ratio Activated Partial Thromboplast Time 24.5sec (22.8-33.0) Troponin T 0.010ug/L (0.0-0.011) Thyroid Stimulating Hormone (TSH) 0.706uIU/mL (0.450-4.500) Test 11/27/16 03:45 White Blood Count 4.3th/mm3 (3.8-10.1) Red Blood Count 3.84mil/mm3 (3.90-5.20) Hemoglobin 11.1g/dL (12.0-15.6) Hematocrit 32.9% (35.0-46.0) Mean Corpuscular Volume 85.7fL (81-100) Mean Corpuscular Hemoglobin 28.9pg (27.0-35.0) Mean Corpuscular Hemoglobin Concent 33.7% (32.0-37.0) Red Cell Distribution Width 13.0% (12.3-15.4) Platelet Count 220bil/L (150-400) Neutrophils (%) (Auto) 95.4% (40-74) Lymphocytes (%) (Auto) 2.5% (14-46) Monocytes (%) (Auto) 1.6% (4-12) Eosinophils (%) (Auto) 0% (0-5) Basophils (%) (Auto) 0% (0-3) Sodium Level 139mEq/L (134-144) Potassium Level 3.9mEq/L (3.5-5.2) Chloride Level 103mEq/L (97-108) Carbon Dioxide Level 24mmol/L (18-29) Blood Urea Nitrogen 20mg/dL (6-24) Creatinine 0.54mg/dL (0.57-1.00) Estimat Glomerular Filtration Rate 167mL/min (>59) Glucose Level 136mg/dL (60-99) Calcium Level 8.6mg/dL (8.5-10.1) Total Bilirubin 0.5mg/dL (0.0-1.2) Aspartate Amino Transf (AST/SGOT) 26U/L (0-50) Alanine Aminotransferase (ALT/SGPT) 36U/L (0-32) Alkaline Phosphatase 64U/L (25-150) Total Protein 5.6g/dL (6.4-8.4) Albumin 3.6g/dL (3.4-5.0) Discharge Medications Discharge Medications Acetaminophen (Tylenol Arthritis) 650 Mg Tablet.er 650 MG PO DAILY (Reported) Aspirin (Aspirin) 81 Mg Tablet 81 MG PO DAILY Prescribed by: PRESLEY AMADOR MD Prednisone (PredniSONE) 50 Mg Tablet 60 MG PO ONCE Prescribed by: PRESLEY AMADOR MD As needed Lorazepam (Lorazepam) 0.5 Mg Tablet 0.5 MG PO QID PRN PRN For Anxiety (Reported ) Followup Plan Disposition: home Discharge Diet: Low fat, Low Sodium Discharge Activity: No restrictions Patient Instructions You were hospitalized for chemotherapy for B-cell lymphoma.You completed chemotherapy cycle and tolerated well.Please follow up with your oncologist tomorrow 11/28 for GSCF injection .You have new onset atrial fibrillation. Please follow-up with drafter patent outpatient. Follow-up Provider: Arsh Manley DO Follow-up with PCP in: 1 week (11/28/16) Provider: Glenroy Miranda PA-C Follow-up in: 1 week Time spent 35 minutes reviewing chart and coordinating discharge copies to: Glenroy Miranda PA-C; Arsh Manley Melaku MD Nov 27, 2016 14:17
[2016-11-28] MEDS ORDERED: PRED50TA PO (15:15)
[2016-11-28] MEDS ORDERED: ONDA8TAB7 PO (15:15)
== END 2016-11-27 12:35 | disposition home or self-care (01) | DRG 847 ==
LOC: OSC 08:08
PROVIDERS: ADMIT Internal Medicine Hematology & Oncology; ATTEND Internal Medicine
DX: Z51.11 Encounter for antineoplastic chemotherapy (principal); C83.31 Diffuse large B-cell lymphoma, lymph nodes of head, face, and neck; F41.9 Anxiety disorder, unspecified; I48.91 Unspecified atrial fibrillation

== ENCOUNTER 2016-12-13 08:36 | Inpatient (IN) | payer OTHER ==
[~2016-12-13] VITALS: Ht 167.6 cm; Wt 76.4 kg
[~2016-12-13 08:36] MED LIST changes: +ACET-2766 PO; +FISH1CAP15 PO; -GLUC500T12 PO; +HYDR-4003 PO; -LORA0.5T PO; -MV-M1CAP15 PO; -OMEG1CAP99 PO; +ONDA8TAB7 PO; +PRED50TA PO; +PYR50 PO; +SENN25TA8 PO; -TURM500C3 PO; +TURM500C7 PO
[2016-12-13 08:55] VITALS: BP 113/76; PULSE 76; RESP 20; O2SAT 99
[2016-12-13] MEDS: 0.9% Sodium Chloride 1,000 ML IV SCH ×2 (10:14→21:55)
[2016-12-13] MEDS ORDERED: Alum-Mag Hydrox-Simeth 30 mL Suspension PO PRN (10:15)
[2016-12-13] MEDS ORDERED: Ondansetron 2 mg/mL 2 mL Inj IVPUSH PRN ×2 (10:15→11:35)
[2016-12-13] MEDS ORDERED: Polyethylene Glycol (PEG) 17 Gm Powder PO PRN (10:15)
[2016-12-13 10:36] LABS: BASOPHILS % (AUTO) 1.2 % (0-3); EOSINOPHILS % (AUTO) 4.6 % (0-5); MONOCYTES % (AUTO) 13.7 % (4-12); Mean Corpuscular Hemoglobin 28.8 pg (27.0-35.0); NEUTROPHILS % (AUTO) 68.1 % (40-74); Platelet Count 232 bil/L (150-400)
[2016-12-13] MEDS ORDERED: Sodium Chloride LOK Flush 10 mL Syringe IVFLUSH PRN ×2 (11:00)
[2016-12-13 11:14] VITALS: PULSE 71
[2016-12-13] MEDS ORDERED: DEXTROSE 5% IV SCH (11:30)
[2016-12-13] MEDS ORDERED: ONDANSETRON IV SCH (11:30)
[2016-12-13] MEDS ORDERED: LORazepam 0.5 mg Tablet PO PRN (11:30)
[2016-12-13] MEDS ORDERED: Ondansetron 8 mg ODT Tablet PO PRN (11:35)
[2016-12-13] MEDS: Omega-3 Fatty Acids 1,000 mg Capsule PO SCH (11:38)
[2016-12-13] MEDS ORDERED: VINCRISTINE IV SCH (12:00)
[2016-12-13] MEDS ORDERED: [UNRECOGNIZED DRUG - OTHER] IV SCH (12:00)
[2016-12-13] MEDS ORDERED: ETOPOSIDE IV SCH (12:00)
[2016-12-13] MEDS ORDERED: DOXORUBICIN IV SCH (12:00)
[2016-12-13] MEDS ORDERED: SODIUM CHLORIDE 0.9% IV ONE (12:00)
[2016-12-13] MEDS ORDERED: RITUXIMAB IV ONE (12:00)
--- NOTE | 2016-12-13 12:05 | PCM.HPMED ---
Subjective Date of Service Dec 13, 2016 Primary Provider: Admitting Physician: Presley Cohen MD Primary Care Physician: Glenroy Miranda PA-C Attending Physician: Presley Cohen MD Admit Status: Direct Admit Chief Complaint: admitted for 2nd cycle of chemo History of Present Illness: 56-year-old pleasant lady with recent diagnosis of diffuse large B-cell lymphoma , non germinal cell type ,recent brief Afib during last hospitalization admitted by Dr Manley for 2nd cycle chemo. her right neck mass has responded well and decreased in size after first chemo . she has peripheral neuropathy following first cycle with tingling in finger tips which is improving . she had very brief Afib during last hospitalization and was discharged on ASA 81 mg . She was seen by grout worker outpatient and advised to stop ASA . denies fever . Review of Systems: Comprehensive review of systems performed, pertinent positives and negatives included in history of present illness Allergies Coded Allergies: No Known Allergies (Verified Allergy, Unknown, 11/22/16) Home Medications multivitamin PMH 1. Diffuse large B-cell lymphoma, non germinal cell type, non double hit as noted in the HPI 2. Lower back pain secondary to degenerative joint disease, as well as a slipped disk. Surgical History 1. Laminectomy in the lower back in November 2015. 2. Bilateral knee surgery. Family History She has two children, a son age 27, a daughter age 25, both healthy. A sister and a brother who are otherwise healthy. Father from complications of head and neck cancer. He was a heavy smoker and drinker. Paternal grandfather with bone cancer, unknown primary. Paternal grandmother with ovarian cancer diagnosed in her 70s. Social History Hx Alcohol Use: No Hx Substance Use: No Hx Tobacco Use: No Smoking Status: Never Smoker Exam Vital Signs Vital Sign - Last Date Time Temp Pulse Resp B/P Pulse Ox O2 Delivery O2 Flow Rate FiO2 12/13/16 11:14 71 12/13/16 08:55 36.6 20 113/76 99 Room Air Exam Gen. patient is lying comfortably in hospital bed HEENT: Head is normocephalic atraumatic, Pupils equal and reactive, extraocular movements intact, Lymph nodes: Enlarged hard LNs right cervical Lungs clear to auscultation bilaterally Heart regular rate and rhythm without murmurs gallops or rubs Abdomen soft nontender without hepatosplenomegaly Extremities pulses are present dorsalis pedis posterior tibialis and radial. tSkin is warm and dry there are no rashes, Psych alert and oriented to person place and time Neuro cranial nerves II through XII are grossly intact Lymph: There is no lymphadenopathy appreciated in the cervical supra infraclavicular regions : no hernandez Lab and Diagnostics Result Diagram: 12/13/16 1014 12/13/16 0910 Assessment & Plan 56-year-old pleasant lady with recent diagnosis of diffuse large B-cell lymphoma , non germinal cell type ,recent brief Afib during last hospitalization admitted by Dr Manley for 2nd cycle chemo. # Diffuse large B-cell lymphoma, present on admission. - R-EPOCH, cycle 2, -good clinical response following cycle 1 - oncology to follow patient inpatient and arrange Neupogen upon discharge # Peripheral neuropathy due to chemotherapy,poa, -20% dose reduction of vincristine given her neuropathy per oncology #Pancytopenia, stable -f/u cbc closely #Recent episode of A-fib. -in NSR now -Telemetry for now. May discontinue tomorrow full code Patient admitted under inpatient status with expected length of stay > 2 midnights for severity of present symptoms, complexities of treatment plan and risk for adverse events Resuscitation Status: CPR: Attempt Resuscitation copies to: Glenroy Miranda PA-C; Arsh Manley Melaku MD Dec 13, 2016 12:05
[2016-12-13 12:47] VITALS: BP 102/66; PULSE 66; RESP 18; O2SAT 100
[2016-12-13] MEDS ORDERED: 0.9% Sodium Chloride 100 ML ONE (14:21)
[2016-12-13] MEDS: predniSONE 20 mg Tablet PO SCH ×2 (14:35→19:15)
[2016-12-13] MEDS ORDERED: [UNRECOGNIZED DRUG - CODE] PO (14:44)
[2016-12-13] MEDS ORDERED: MULT-666 PO (14:46)
[2016-12-13 15:07] VITALS: BP 112/74; PULSE 78; RESP 20; O2SAT 100
[2016-12-13 15:30] VITALS: BP 99/64; PULSE 69; RESP 20; O2SAT 99
[2016-12-13] MEDS: DOXORUBICIN IV SCH (17:39)
[2016-12-13] MEDS: ETOPOSIDE IV SCH (17:39)
[2016-12-13] MEDS: VINCRISTINE IV SCH (17:39)
[2016-12-13] MEDS: [UNRECOGNIZED DRUG - OTHER] IV SCH (17:39)
--- NOTE | 2016-12-13 18:33 | NUR ---
Admit/chemo Patient admitted this am for Cycle 2 of R-Epoch infusion. Patient oriented to floor seems to be less anxious this admission for chemo. Patient alert, oriented c/o slight headache upon admission which was relieved with Tylenol. Patient started on hydration fluids, given pre meds and Rituxin titrated to goal rate . Patient had no acute problems with Rituxin infusion. Patient is now receiving Etoposide 90 mg, Doxorubicn 18 mg and Vincristine 0.6 reduced dose related to peripheral neuropathy together over 24 hours. Picc line patent and with brisk blood return when checked.
[2016-12-13 19:25] VITALS: BP 98/63; PULSE 78; O2SAT 99
[2016-12-14] VITALS (8 sets, daily range): BP systolic 98–122; BP diastolic 63–75; PULSE 58–98; RESP 15–20; O2SAT 97–100
--- NOTE | 2016-12-14 02:26 | NUR ---
Activity Patient up walking multiple laps around unit at beginning of shift. Denies lightheadedness/dizziness. Gait steady. Denies any c/o pain or discomfort. Chemo currently infusing @ 21.4 ml/hr. PICC line has brisk blood return. Some complaints of neuropathy to BL hands, but patient states this is an issue prior to admission and Dr. Manley is aware.
[2016-12-14 06:27] LABS: BASOPHILS % (AUTO) 0 % (0-3); EOSINOPHILS % (AUTO) 0 % (0-5); MONOCYTES % (AUTO) 1.2 % (4-12); Mean Corpuscular Hemoglobin 29.1 pg (27.0-35.0); Mean Corpuscular Volume 82.2 fL (81-100); NEUTROPHILS % (AUTO) 93.8 % (40-74); Platelet Count 269 bil/L (150-400)
[2016-12-14] MEDS ORDERED: Ondansetron 8 mg ODT Tablet PO PRN (07:30)
[2016-12-14] MEDS ORDERED: HYDROcodone-APAP 5-325 mg Tablet PO PRN (07:50)
[2016-12-14] MEDS: 0.9% Sodium Chloride 1,000 ML IV SCH ×2 (07:54→17:45)
[2016-12-14] MEDS ORDERED: Omega-3-Acid Ethyl Esters 1 Gm Capsule PO SCH (08:30)
[2016-12-14] MEDS ORDERED: LECITHIN PO SCH (08:30)
[2016-12-14] MEDS: Omega-3 Fatty Acids 1,000 mg Capsule PO SCH (08:30)
[2016-12-14] MEDS: Trimethoprim-Sulfa 160 mg-800 mg Tablet PO SCH (08:56)
[2016-12-14] MEDS: predniSONE 20 mg Tablet PO SCH ×2 (08:56→18:22)
--- NOTE | 2016-12-14 14:08 | PCM.PNMED ---
Subjective Date of Service Dec 14, 2016 Subjective Tolerating chemotherapy. No new complaints. Exam Vital Signs Vital Sign - Last Date Time Temp Pulse Resp B/P Pulse Ox O2 Delivery O2 Flow Rate FiO2 12/14/16 13:11 36.8 66 15 117/75 98 Room Air Intake and Output 12/13/16 12/13/16 12/14/16 Cumulative From/Thru 15:00 23:00 07:00 12/13/16 08:53 - 12/14/16 05:20 Intake Total 1200 ml 2110 ml 3310 ml Output Total 1400 ml 2350 ml 3750 ml Balance -200 ml -240 ml -440 ml Intake Oral 1200 ml 800 ml 2000 ml IV Total 1310 ml 1310 ml Output Urine Total 1400 ml 2350 ml 3750 ml # Bowel Movements 0 0 Exam Gen. patient is lying comfortably in hospital bed HEENT: Head is normocephalic atraumatic, Pupils equal and reactive, extraocular movements intact, Lymph nodes: Enlarged hard LNs right cervical Lungs clear to auscultation bilaterally Heart regular rate and rhythm without murmurs gallops or rubs Abdomen soft nontender without hepatosplenomegaly Extremities pulses are present dorsalis pedis posterior tibialis and radial. tSkin is warm and dry there are no rashes, Psych alert and oriented to person place and time Neuro cranial nerves II through XII are grossly intact Lymph: There is no lymphadenopathy appreciated in the cervical supra infraclavicular regions : no hernandez IVs and Medications Medications Reviewed: Medications were reviewed in detail Lab and Diagnostics Result Diagram: 12/14/16 0555 12/14/16 0555 Assessment & Plan 56-year-old pleasant lady with recent diagnosis of diffuse large B-cell lymphoma , non germinal cell type ,recent brief Afib during last hospitalization admitted by Dr Manley for 2nd cycle chemo. # Diffuse large B-cell lymphoma, present on admission. - R-EPOCH, cycle 2 started 12/13 -good clinical response following cycle 1 - oncology to follow patient inpatient and arrange Neupogen upon discharge # Peripheral neuropathy due to chemotherapy,poa, -20% dose reduction of vincristine given her neuropathy per oncology #Pancytopenia, stable,improved -f/u cbc closely #Recent episode of A-fib. -in NSR now -Telemetry for now. May discontinue tomorrow full code Patient admitted under inpatient status with expected length of stay > 2 midnights for severity of present symptoms, complexities of treatment plan and risk for adverse events VTE Mechanical Devices: Intermittant Pneumatic CD Resuscitation Status: CPR: Attempt Resuscitation Presley Cohen MD Dec 14, 2016 14:08
--- NOTE | 2016-12-14 17:02 | NUR ---
Social Work: Screening/Multidisciplinary Rounds D: EMR reviewed. Pt is a 56 y/o female admitted [place] - with a readmit risk score of 4 - for scheduled chemo for B Cell Lymphoma per H&P. Pt's insurance is [facility] and PCP is Glenroy Miranda PA-C. Pt also sees Oncologist through [facility]. Pt does not screen in for assessment due to scheduled chemo. Pt's NOK is spouse Taz Duggan [phone]. Per multidisciplinary rounds, pt to discharge 12/18 after last chemo infusion. Per MD, no SW needs identified at this time - pt is scheduled to be here for infusion. Pt's spouse to provide transport home when pt is medically stable. SW will continue to follow for any needs that may arise. A: Pt's capacity for self-care assessed: Pt is independent at baseline and no concerns identified for pt's capacity for self-care addressed in rounds. P: Pt to discharge home after last chemo infusion on 12/18 with spouse to provide transport via POV. SW will continue to follow for needs or MD orders. CATIA Vaughan Addendum: 12/14/16 at 1718 by JAMAAL PATEL SW met with pt at bedside to discuss DPOA/advanced directive ppw. SW provided pt with a copy and encouraged pt to provide the hospital with a copy once complete. Pt also requested ongoing Oncology DRY WALL APPLICATOR - [facility] will provide pt with resources for Oncology DRY WALL APPLICATOR. CATIA Vaughan
[2016-12-14] MEDS: VINCRISTINE IV SCH (18:51)
[2016-12-14] MEDS: ETOPOSIDE IV SCH (18:51)
[2016-12-14] MEDS: [UNRECOGNIZED DRUG - OTHER] IV SCH (18:51)
[2016-12-14] MEDS: DOXORUBICIN IV SCH (18:51)
--- NOTE | 2016-12-14 19:02 | NUR ---
Day 2: Chemotherapy At 1850, 2nd dose of 4 doses of Doxorubicin, Etoposide and Vincristine infusing at 21.4ml/hr. A&Ox3, BURNS, VSS, Single lumen PICC - brisk blood return remains present, 16mg IV Zofran given, No questions/concerns re: dose - aware of s/sx to watch for. Infusion running concurrently with NS at 100ml/hr. Visiting with friends. Care continues.
[2016-12-14 22:54] LABS: APPEARANCE,URINE CLEAR (CLEAR,HAZY); COLOR,URINE STRAW (YELLOW); OCCULT BLOOD,URINE SMALL (NEGATIVE); PH,URINE 5.5 (5.0-8.0); UROBILINOGEN,URINE NORMAL (NORMAL)
[2016-12-15] VITALS (9 sets, daily range): BP systolic 66–115; BP diastolic 58–91; PULSE 50–74; RESP 16–18; O2SAT 96–100
[2016-12-15] MEDS: 0.9% Sodium Chloride 1,000 ML IV SCH ×2 (03:56→14:00)
--- NOTE | 2016-12-15 05:06 | NUR ---
Chemo Tolerating chemo infusion without incident. Brisk blood return in PICC line. Lab to collect blood to not interrupt infusion. Hourly rounding ongoing.
[2016-12-15 06:38] LABS: BASOPHILS % (AUTO) 0 % (0-3); EOSINOPHILS % (AUTO) 0 % (0-5); MONOCYTES % (AUTO) 5.1 % (4-12); Mean Corpuscular Volume 83.3 fL (81-100); NEUTROPHILS % (AUTO) 90.7 % (40-74); Platelet Count 216 bil/L (150-400)
[2016-12-15] MEDS: Omega-3 Fatty Acids 1,000 mg Capsule PO SCH (08:30)
[2016-12-15] MEDS: predniSONE 20 mg Tablet PO SCH ×2 (09:06→17:32)
--- NOTE | 2016-12-15 09:24 | NUR ---
Chemo Pt with single lumen PICC, brisk blood return present. IVF NS infusing at 100ml/hr concurrently with Etoposide/Doxorubicin/Vincristine at 21.5ml/hr in attempt to finish in 24hrs to make up the overfill time. Pt remains on Telemetry. Ambulating hallway. Care continues.
--- NOTE | 2016-12-15 10:17 | PCM.PNMED ---
Subjective Date of Service Dec 15, 2016 Subjective No new complaints or events. Tolerating chemotherapy. Exam Vital Signs Vital Sign - Last Date Time Temp Pulse Resp B/P Pulse Ox O2 Delivery O2 Flow Rate FiO2 12/15/16 09:27 36.4 64 18 115/74 100 Room Air Intake and Output 12/14/16 12/14/16 12/15/16 Cumulative From/Thru 15:00 23:00 07:00 12/13/16 08:53 - 12/15/16 06:53 Intake Total 2956 ml 2893 ml 9159 ml Output Total 1600 ml 2800 ml 8150 ml Balance 1356 ml 93 ml 1009 ml Intake Oral 1237 ml 1600 ml 4837 ml IV Total 1719 ml 1293 ml 4322 ml Output Urine Total 1600 ml 2800 ml 8150 ml # Voids 5 5 # Bowel Movements 0 1 1 Exam Gen. patient is lying comfortably in hospital bed HEENT: Head is normocephalic atraumatic, Pupils equal and reactive, extraocular movements intact, Lymph nodes: Enlarged hard LNs right cervical Lungs clear to auscultation bilaterally Heart regular rate and rhythm without murmurs gallops or rubs Abdomen soft nontender without hepatosplenomegaly Extremities pulses are present dorsalis pedis posterior tibialis and radial. tSkin is warm and dry there are no rashes, Psych alert and oriented to person place and time Neuro cranial nerves II through XII are grossly intact Lymph: There is no lymphadenopathy appreciated in the cervical supra infraclavicular regions : no hernandez IVs and Medications Medications Reviewed: Medications were reviewed in detail Lab and Diagnostics Result Diagram: 12/15/1661412/15/16614 Assessment & Plan 56-year-old pleasant lady with recent diagnosis of diffuse large B-cell lymphoma , non germinal cell type ,recent brief Afib during last hospitalization admitted by Dr Manley for 2nd cycle chemo. # Diffuse large B-cell lymphoma, present on admission. - R-EPOCH, cycle 2 started 12/13 -good clinical response following cycle 1 - oncology to follow patient inpatient on Saturday and arrange Neupogen upon discharge # Peripheral neuropathy due to chemotherapy,poa, -20% dose reduction of vincristine due to neuropathy per oncology #Pancytopenia, stable,improved -f/u cbc closely #Recent episode of A-fib. -in NSR now -Telemetry for now. May discontinue tomorrow full code Patient admitted under inpatient status with expected length of stay > 2 midnights for severity of present symptoms, complexities of treatment plan and risk for adverse events disposition:discharge 3-4 days VTE Mechanical Devices: Intermittant Pneumatic CD Resuscitation Status: CPR: Attempt Resuscitation Presley Cohen MD Dec 15, 2016 10:17
[2016-12-15] MEDS: ETOPOSIDE IV SCH (18:57)
[2016-12-15] MEDS: [UNRECOGNIZED DRUG - OTHER] IV SCH (18:57)
[2016-12-15] MEDS: DOXORUBICIN IV SCH (18:57)
[2016-12-15] MEDS: VINCRISTINE IV SCH (18:57)
--- NOTE | 2016-12-15 19:25 | NUR ---
Day 3 Chemotherapy Pt with 3rd or 4 bags Etoposide, Doxorubicin, Vincristine 24hr infusion hanging at 1900. VSS, A&Ox3, PICC patent - brisk blood return present, NS also running at 100ml/hr concurrently with chemo. No questions/concerns prior to start of chemo. Chemo currently infusing at 22.1ml/hr to make up for the overfill; to be completed in 24hrs. Care continues. NOC shift aware and visualized settings.
[2016-12-16] VITALS (10 sets, daily range): BP systolic 99–123; BP diastolic 62–74; PULSE 51–63; RESP 16–20; O2SAT 97–99
[2016-12-16] MEDS: 0.9% Sodium Chloride 1,000 ML IV SCH ×3 (00:26→20:30)
--- NOTE | 2016-12-16 05:20 | NUR ---
Chemo Brisk blood return in PICC line. Tolerating chemo infusion with minimal discomfort, one mouth sore starting on tongue, encouraged to use saline rinses frequently for care. Ambulates in hallway independently, but complains of fatigue greater this time than last hospitalization. One episode of discouraged crying in evening, talked with pt about accepting and expressing her feelings. Overall, reports hopeful attitude about treatment. Continue to provide supportive care, hourly rounding ongoing.
[2016-12-16 06:28] LABS: BASOPHILS % (AUTO) 0 % (0-3); EOSINOPHILS % (AUTO) 0 % (0-5); MONOCYTES % (AUTO) 8.5 % (4-12); Mean Corpuscular Hemoglobin 28.9 pg (27.0-35.0); Mean Corpuscular Volume 83.9 fL (81-100); NEUTROPHILS % (AUTO) 84.7 % (40-74); Platelet Count 195 bil/L (150-400)
[2016-12-16] MEDS: Omega-3 Fatty Acids 1,000 mg Capsule PO SCH (08:30)
[2016-12-16] MEDS: predniSONE 20 mg Tablet PO SCH ×2 (10:32→19:24)
--- NOTE | 2016-12-16 14:08 | PCM.PNMED ---
Subjective Date of Service Dec 16, 2016 Subjective No new complaints or events. Tolerating chemotherapy. Has nausea today but no vomiting. Exam Vital Signs Vital Sign - Last Date Time Temp Pulse Resp B/P Pulse Ox O2 Delivery O2 Flow Rate FiO2 12/16/16 09:46 60 12/16/16 09:00 36.7 17 110/69 99 Room Air Intake and Output 12/15/16 12/15/16 12/16/16 Cumulative From/Thru 15:00 23:00 07:00 12/13/16 08:53 - 12/16/16 05:39 Intake Total 2629 ml 2069 ml 77512 ml Output Total 1600 ml 1900 ml 14170 ml Balance 1029 ml 169 ml 2207 ml Intake Oral 1021 ml 800 ml 6658 ml IV Total 1608 ml 1269 ml 7199 ml Output Urine Total 1600 ml 1900 ml 43034 ml # Voids 5 # Bowel Movements 0 0 1 Exam Gen. patient is lying comfortably in hospital bed HEENT: Head is normocephalic atraumatic, Pupils equal and reactive, extraocular movements intact, Lymph nodes: Enlarged hard LNs right cervical Lungs clear to auscultation bilaterally Heart regular rate and rhythm without murmurs gallops or rubs Abdomen soft nontender without hepatosplenomegaly Extremities pulses are present dorsalis pedis posterior tibialis and radial. tSkin is warm and dry there are no rashes, Psych alert and oriented to person place and time Neuro cranial nerves II through XII are grossly intact Lymph: There is no lymphadenopathy appreciated in the cervical supra infraclavicular regions : no hernandez IVs and Medications Medications Reviewed: Medications were reviewed in detail Lab and Diagnostics Result Diagram: 12/16/16 0555 12/16/16 0555 Assessment & Plan 56-year-old pleasant lady with recent diagnosis of diffuse large B-cell lymphoma , non germinal cell type ,recent brief Afib during last hospitalization admitted by Dr Manley for 2nd cycle chemo. # Diffuse large B-cell lymphoma, present on admission. -R-EPOCH, cycle 2 started 12/13 -good clinical response following cycle 1 - oncology to follow patient inpatient on Saturday and arrange Neupogen upon discharge . also received a dose of prednisone on day of discharge on prior admission # Peripheral neuropathy due to chemotherapy,poa, -20% dose reduction of vincristine due to neuropathy per oncology #Pancytopenia, stable,improved -f/u cbc closely #Recent episode of A-fib. -in NSR now -Telemetry for now. May discontinue tomorrow full code Patient admitted under inpatient status with expected length of stay > 2 midnights for severity of present symptoms, complexities of treatment plan and risk for adverse events disposition:discharge saturday VTE Mechanical Devices: Intermittant Pneumatic CD Resuscitation Status: CPR: Attempt Resuscitation Presley Cohen MD Dec 16, 2016 14:08
--- NOTE | 2016-12-16 18:53 | NUR ---
CHEMO/WEEPY/NAUSEA Patient feeling nauseous and weepy this am. Patient was offered antiemetic but declined and did eat some breakfast . Patient stated felt better mid morning. Patient overwhelmed this am discussed to express feelings and it was ok . Patient receiving chemo will get bag 4 of 4 this evening . Patient getting Etoposide 90 mg, doxorubicin 18 mg and vincristine 0.6 mg over 24 hours. Picc line with brisk blood return when checked. Patient states only new thing was increased nausea this am. Just feeling fatigued.
[2016-12-16] MEDS: VINCRISTINE IV SCH (19:25)
[2016-12-16] MEDS: ETOPOSIDE IV SCH (19:25)
[2016-12-16] MEDS: [UNRECOGNIZED DRUG - OTHER] IV SCH (19:25)
[2016-12-16] MEDS: DOXORUBICIN IV SCH (19:25)
--- NOTE | 2016-12-17 00:51 | NUR ---
Chemo: Day 4 / Neuropathy / [place] Pt A&Ox3, BURNS, VSS, pleasant, states feeling like it was an off day and feeling queasy, chemo completed, but unable to be hung until 1930. Needed to have RN double check prior to administration, not available up til that point. Brisk blood return present via PICC, received 16mg IV Zofran. Chemo mix of Doxorubicin/Etoposide/Vincristine infusing at 21.5 to try and make up for any overfill. Pt with neuropathy to her hands, states, "dull achey pain" but is uncomfortable states feeling like "my skin is thinning out." Appears to have reddened pads but cap refill <3 seconds, states she will ask Dr. Manley re: this in the morning. States maybe this is due to her using her phone more, since she has been in the hospital. Per tele: Pt bradycardic, nonsustained, to high 30s (37-39), just prior to midnight. Noted that pt to have gone done to 40s with sleeping. Went in to change battery, pt then awoken, asymptomatic. Continue to monitor.
[2016-12-17 01:39] VITALS: BP 114/73; PULSE 60; RESP 18; O2SAT 98
--- NOTE | 2016-12-17 03:03 | NUR ---
Bradycardia Per tele: Pt with HR down to 40s and even 38-39 while at asleep. Pt asymptomatic. Is fairly healthy woman despite current cancer diagnosis, plays tennis. Continue to monitor.
[2016-12-17 06:00] VITALS: BP 99/54; PULSE 95; RESP 16; O2SAT 97
[2016-12-17] MEDS: 0.9% Sodium Chloride 1,000 ML IV SCH ×2 (06:23→14:14)
[2016-12-17 06:25] LABS: BASOPHILS % (AUTO) 0 % (0-3); EOSINOPHILS % (AUTO) 0 % (0-5); MONOCYTES % (AUTO) 4.4 % (4-12); Mean Corpuscular Hemoglobin 28.7 pg (27.0-35.0); Mean Corpuscular Volume 81.6 fL (81-100); NEUTROPHILS % (AUTO) 90.2 % (40-74); Platelet Count 204 bil/L (150-400)
[2016-12-17 08:12] VITALS: BP 116/77; PULSE 54; RESP 18; O2SAT 97
[2016-12-17] MEDS: Omega-3 Fatty Acids 1,000 mg Capsule PO SCH (08:30)
[2016-12-17] MEDS: Trimethoprim-Sulfa 160 mg-800 mg Tablet PO SCH ×2 (08:31→13:09)
[2016-12-17] MEDS: predniSONE 20 mg Tablet PO SCH ×2 (08:31→18:11)
[2016-12-17 09:55] VITALS: PULSE 73
--- NOTE | 2016-12-17 11:03 | PROG NOTE ---
[address] [address] PROGRESS NOTE PATIENT: BHUPINDER FOOTE : 1960 MR#: [id number] ADMIT: 12/13/2016 JOB ID: [id number] DATE: 12/17/2016 SUBJECTIVE: The patient is being seen today per hospital rounds. She carries a diagnosis of diffuse large B-cell lymphoma, stage IV, non-germinal cell B type. The patient is on cycle two, day five of dose adjusted R-EPOCH. Events over the past four days are noted. Treatment has been manageable in terms of side effects with more noticeable fatigue, low-grade nausea. The patient did have an improvement in her neuropathy on day one, but it has subsequently returned. Non-painful. She is able to do her daily activities. REVIEW OF SYSTEMS: Remainder of her review of systems was negative for any new fevers, chills, cough, sore throat, burning or frequency of urine. PAST MEDICAL HISTORY: Significant for diffuse large B-cell lymphoma. Please see my clinic note dated November 21, 2016, under the [facility] for complete details regarding her diagnosis, staging workup, and treatment to date. PHYSICAL EXAMINATION: Vital signs today showing a weight of 76.4 kg, blood pressure 116/77, temperature 36, pulse 54, respiratory rate is 18. She is saturating at 97% on room air. She is A and O x3. No acute distress. Good spirits overall. Affect appropriate. PERRLA. Anicteric. Cor was RRR. Lungs were clear to auscultation bilaterally. Abdomen was nondistended, nontender. No hepatosplenomegaly. Lower extremities without significant swelling or edema. Skin without further rashes, lesions. Cranial nerves grossly intact. No focality. Strength 5/5, both upper and lower. LABORATORY DATA: From December 17, 2016, showing a white cell count of 1.8, hemoglobin 8.9, platelet count of 204. Sodium 142, potassium 4.1, serum creatinine 0.58, calcium 8.7, AST 25, ALT 56, alk phos 57. ASSESSMENT/PLAN: The patient is a very pleasant, 56-year-old female, on cycle two, day five of R-EPOCH therapy with manageable side effects as above. The patient did not have any significant arrhythmias during her admission/treatment today, although she does report some recorded bradycardia episodes at night while sleeping. Recommendations are to continue with planned regimen. She will finish up her day five of cyclophosphamide today, with her prednisone dose later this afternoon. She will return to the clinic on December 19, 2016, for a clinic evaluation. Labs include a CBC, CMP, and her 1st Neupogen shot. She had no further questions.
[2016-12-17 12:07] VITALS: BP 121/76; PULSE 53; RESP 18; O2SAT 100
--- NOTE | 2016-12-17 13:39 | NUR ---
Social Work: Readiness for D/C/Multidisciplinary Rounds D: EMR reviewed. Pt is a 56 y/o female admitted for scheduled chemo for B Cell Lymphoma per H&P. Per multidisciplinary rounds, pt to discharge 12/17 after last chemo infusion at 9 pm. Pt is likely to d/c this evening after OPTICAL TECHNICIAN hours. Per MD, no SW needs identified at this time. SW met with pt at bedside regarding late d/c. Pt is eager to d/c and confirms no d/c needs. Pt's spouse to provide transport home. A: Pt is independent at baseline and no concerns identified for pt's capacity for self-care P: Pt to discharge home after last chemo infusion on 12/17 with spouse to provide transport via POV. No D/C planning needs. Amrita Waldron OPTICAL TECHNICIAN
[2016-12-17] MEDS ORDERED: Palonosetron 0.05 mg/mL 5 mL Inj IV ONE (16:30)
--- NOTE | 2016-12-17 16:32 | PCM.DIMED ---
Discharge Instructions Date of Service Dec 17, 2016 Dates of Hospitalization Dec 13, 2016 at 08:36 Discharge Diagnosis Discharge Diagnosis # Diffuse large B-cell lymphoma, present on admission. -R-EPOCH, s/p cycle 2 # Peripheral neuropathy due to chemotherapy,poa, #Pancytopenia, stable,acute on chronic #Recent episode of A-fib. Diet Discharge Diet: No restrictions Activity Discharge Activity: Limited until seen by PCP Call your provider Call your provider for: Fever or Chills, Shortness of breath, Bleeding, Chest pain, Vomitting, Excessive diarrhea, Weakness (unilateral) Patient Instructions Patient Instructions You were hospitalized for second cycle of chemotherapy/R-EPOCH . Tolerated chemotherapy well so far.Please follow up with your oncologist Dr. Manley on 12/19 as scheduled . Follow-up Provider: Glenroy Miranda PA-C Follow-up with PCP in: 3 weeks Provider: Arsh Manley DO Follow-up in: 1 week (12/19/16) Presley Cohen MD Dec 17, 2016 16:32
[2016-12-17] MEDS ORDERED: SULF1TAB35 PO (16:35)
[2016-12-17] MEDS ORDERED: LORA-302 PO (16:35)
--- NOTE | 2016-12-17 16:44 | PCM.DC.MED ---
Discharge Summary Date of Service Dec 17, 2016 Dates of Hospitalization Date of Hospital Admission Dec 13, 2016 at 08:36 Date of Discharge: Dec 17, 2016 Providers: Admitting Physician: Presley Cohen MD Primary Care Physician: Glenroy Miranda PA-C Attending Physician: Presley Cohen MD Diagnosis at Time of Discharge Diagnosis at Time of Discharge # Diffuse large B-cell lymphoma, present on admission. -R-EPOCH, s/p cycle 2 # Peripheral neuropathy due to chemotherapy,poa, #Pancytopenia, stable,acute on chronic #Recent episode of A-fib. Consultations Oncology Dr. Manley Brief History per HPI 56-year-old pleasant lady with recent diagnosis of diffuse large B-cell lymphoma , non germinal cell type ,recent brief Afib during last hospitalization admitted by Dr Manley for 2nd cycle chemo. her right neck mass has responded well and decreased in size after first chemo . she has peripheral neuropathy following first cycle with tingling in finger tips which is improving . she had very brief Afib during last hospitalization and was discharged on ASA 81 mg . She was seen by electronic operator outpatient and advised to stop ASA . denies fever . Hospital Course 56-year-old pleasant lady with recent diagnosis of diffuse large B-cell lymphoma , non germinal cell type ,recent brief Afib during last hospitalization admitted by Dr Manley for 2nd cycle chemo. # Diffuse large B-cell lymphoma, present on admission.chronic -R-EPOCH, cycle 2 started 12/13,will finish later today at 9pm.patient wants to go home tonight .will discharge if tolerated well.will also finish course of steroid tonight -good clinical response following cycle 1 - oncology Dr Manley saw her today and arranged follow up on 12/19 -will continue Bactrim prophaylaxis # Peripheral neuropathy due to chemotherapy,poa, -20% dose reduction of vincristine due to neuropathy per oncology #Pancytopenia, stable,improved -f/u cbc on 12/[address] Manley -wbc 1.8 today #Recent episode of A-fib. -in NSR now discharge home late tonight after chemo Exam Vital Signs (Last) Date Time Temp Pulse Resp B/P Pulse Ox O2 Delivery O2 Flow Rate FiO2 12/17/16 12:07 36.1 53 18 121/76 100 Room Air Exam Gen. patient is lying comfortably in hospital bed HEENT: Head is normocephalic atraumatic, Pupils equal and reactive, extraocular movements intact, Lymph nodes: Enlarged hard LNs right cervical Lungs clear to auscultation bilaterally Heart regular rate and rhythm without murmurs gallops or rubs Abdomen soft nontender without hepatosplenomegaly Extremities pulses are present dorsalis pedis posterior tibialis and radial. Skin is warm and dry there are no rashes, Psych alert and oriented to person place and time Neuro cranial nerves II through XII are grossly intact Lymph: There is no lymphadenopathy appreciated in the cervical supra infraclavicular regions : no hernandez Test 12/13/16 09:10 12/14/16 22:35 12/17/16 05:33 Hold Purple Top Tube Received (Received) Magnesium Level 2.0mg/dL (1.6-2.6) Hold [place] Top Tube Received (Received) Urine Color Straw (YELLOW) Urine Appearance Clear (CLEAR,HAZY) Urine pH 5.5 (5.0-8.0) Urine Specific [place] 1.006 (1.003-1.035) Urine Protein Negativemg/dL (NEG,TRACE) Urine Glucose (UA) Negativemg/dL (NEGATIVE) Urine Ketones Negativemg/dL (NEGATIVE) Urine Occult Blood Small (NEGATIVE) Urine Nitrite Negative (NEGATIVE) Urine Bilirubin Negative (NEGATIVE) Urine Urobilinogen Normalmg/dL (NORMAL) Urine Leukocyte Esterase Negative (NEGATIVE) Urine RBC 0-2/hpf (0-2) Urine WBC 0-5/hpf (0-5) Urine Epithelial Cells Occasional/hpf (NONE-MOD) Urine Crystals None seen (NONE SEEN) Urine Bacteria None/hpf (NONE-FEW) Urine Hyaline Casts None/lpf (NONE) Urine Granular Casts None seen (NONE SEEN) Urine Waxy Casts None seen (NONE SEEN) Urine Red Blood Cell Casts None seen (NONE SEEN) Urine White Blood Cell Casts None seen (NONE SEEN) Urine Mucus None seen (None Seen) Urine Trichomonas None seen (NONE SEEN) Urine Yeast None (NONE SEEN) Urinalysis Comment None Urine Culture Reflexed Not indicated White Blood Count 1.8th/mm3 (3.8-10.1) Red Blood Count 3.10mil/mm3 (3.90-5.20) Hemoglobin 8.9g/dL (12.0-15.6) Hematocrit 25.3% (35.0-46.0) Mean Corpuscular Volume 81.6fL (81-100) Mean Corpuscular Hemoglobin 28.7pg (27.0-35.0) Mean Corpuscular Hemoglobin Concent 35.2% (32.0-37.0) Red Cell Distribution Width 15.3% (12.3-15.4) Platelet Count 204bil/L (150-400) Neutrophils (%) (Auto) 90.2% (40-74) Lymphocytes (%) (Auto) 4.9% (14-46) Monocytes (%) (Auto) 4.4% (4-12) Eosinophils (%) (Auto) 0% (0-5) Basophils (%) (Auto) 0% (0-3) Sodium Level 142mEq/L (134-144) Potassium Level 4.1mEq/L (3.5-5.2) Chloride Level 109mEq/L (97-108) Carbon Dioxide Level 22mmol/L (18-29) Blood Urea Nitrogen 19mg/dL (6-24) Creatinine 0.58mg/dL (0.57-1.00) Estimat Glomerular Filtration Rate 154mL/min (>59) Glucose Level 134mg/dL (60-99) Calcium Level 8.7mg/dL (8.5-10.1) Total Bilirubin 0.6mg/dL (0.0-1.2) Aspartate Amino Transf (AST/SGOT) 25U/L (0-50) Alanine Aminotransferase (ALT/SGPT) 56U/L (0-32) Alkaline Phosphatase 57U/L (25-150) Total Protein 5.0g/dL (6.4-8.4) Albumin 3.6g/dL (3.4-5.0) Discharge Medications Discharge Medications Acetaminophen (Tylenol Arthritis) 650 Mg Tablet.er 650 MG PO prn (Reported) Fish Oil/Dha/Epa (Fish Oil 1,200 mg Fish Oil) 1 Each Capsule 1 EACH PO DAILY ( Reported) Lecithin (Lecithin) 1,200 Mg Capsule 3,600 MG PO DAILY (Reported) Multivitamin (Once Daily) 1 Each Tablet 1 EACH PO DAILY (Reported) Pyridoxine (Vitamin B-6) 50 Mg Tablet 300 MG PO DAILY (Reported) Sennosides (Senna Laxative) 25 Mg Tablet 25 MG PO BID (Reported) Sulfamethoxazole/Trimeth 800-160 mg (Bactrim DS 800-160 mg) 1 Each Tablet 1 TABLET PO MoWeFr Prescribed by: PRESLEY COHEN MD Turmeric Root Extract (Turmeric) 500 Mg Capsule 500 MG PO DAILY (Reported) As needed Hydrocodone-Acetaminophen 5-325 mg (Hydrocodone-Acetaminophen 5-325 mg) 1 Each Tablet 1 TABLET PO Q4H PRN PRN For Pain (Reported) Lorazepam (Ativan) 0.5 Mg Tablet 0.5 MG PO Q4 PRN PRN FOR NAUSEA/VOMITING OR ANXIETY Prescribed by: PRESLEY COHEN MD Ondansetron ODT (Zofran ODT) 8 Mg Tablet 8 MG PO q12 hrs prn PRN PRN For Nausea (Reported) Followup Plan Disposition: home Discharge Diet: No restrictions Discharge Activity: Limited until seen by PCP Patient Instructions You were hospitalized for second cycle of chemotherapy/R-EPOCH . Tolerated chemotherapy well so far.Please follow up with your oncologist Dr. Manley on 12/19 as scheduled . Follow-up Provider: Glenroy Miranda PA-C Follow-up with PCP in: 3 weeks Provider: Arsh Manley DO Follow-up in: 1 week (12/19/16) Time spent 20 minutes copies to: Glenroy Miranda PA-C; Arsh Manley Melaku MD Dec 17, 2016 16:44
[2016-12-17] MEDS ORDERED: CYCLOPHOSPHAMIDE IV ONE (17:00)
[2016-12-17] MEDS ORDERED: [UNRECOGNIZED DRUG - OTHER] IV ONE (17:00)
[2016-12-17 17:08] VITALS: BP 120/66; PULSE 56; RESP 18; O2SAT 100
--- NOTE | 2016-12-17 17:44 | NUR ---
Social Work: Discharge D: EMR reviewed. Pt is a 56 y/o female admitted for scheduled chemo for B Cell Lymphoma per H&P. Pt to d/c this evening after INSPECTION MANAGER hours. Pt's spouse to provide transport home. No d/c needs. A: Pt is independent at baseline and no concerns identified for pt's capacity for self-care P: Pt to discharge home after last chemo infusion on 12/17 with spouse to provide transport via POV. No D/C planning needs. Amrita Waldron, INSPECTION MANAGER
--- NOTE | 2016-12-17 19:19 | NUR ---
DC Paperwork Discharge instructions reviewed with pt. Prescription for Sulfa tabs in hand. Per pt no further questions. All side effects of medications and chemos reviewed with pt. Pt to follow up with MD Manley oncology on Saturday. Pt has all paperwork ready to go just needs disconnected and ready to go home after last chemo ran.
[2016-12-19] MEDS ORDERED: OMEP20TA86 PO (11:40)
== END 2016-12-17 20:05 | disposition home or self-care (01) | DRG 847 ==
LOC: OSC 08:36
PROVIDERS: ADMIT Internal Medicine; ATTEND Internal Medicine
PROC: 3E0430M Introduction of Antineoplastic, Monoclonal Antibody, into Central Vein, Percutaneous Approach (ICD-10-PCS; principal; 2016-12-13)
DX: Z51.11 Encounter for antineoplastic chemotherapy (principal); C83.31 Diffuse large B-cell lymphoma, lymph nodes of head, face, and neck; D61.818 Other pancytopenia; M47.896 Other spondylosis, lumbar region; T45.1X5A Adverse effect of antineoplastic and immunosuppressive drugs, initial encounter

== ENCOUNTER 2017-01-03 08:25 | Inpatient (IN) | payer OTHER ==
[~2017-01-03] VITALS: Ht 167.6 cm; Wt 74.7 kg
[~2017-01-03 08:25] MED LIST changes: +LORA-302 PO; +MULT-666 PO; +OMEP20TA86 PO; -PRED50TA PO; +SULF1TAB35 PO; +[UNRECOGNIZED DRUG - CODE] PO
[2017-01-03 08:36] VITALS: BP 118/76; PULSE 70; RESP 18; O2SAT 98
[2017-01-03] MEDS ORDERED: LORazepam 0.5 mg Tablet PO PRN (08:40)
[2017-01-03] MEDS ORDERED: Ondansetron 2 mg/mL 2 mL Inj IVPUSH PRN (08:45)
[2017-01-03] MEDS ORDERED: Ondansetron 8 mg ODT Tablet PO PRN (08:45)
--- NOTE | 2017-01-03 09:00 | NUR ---
Admit Pt arrived to floor @ 0800 for 5 days of chemo. Picc line in place--blood return obtained. Labs drawn. No pain or nausea upon arrival. Care conts
[2017-01-03 10:14] LABS: BASOPHILS % (AUTO) 0.2 % (0-3); EOSINOPHILS % (AUTO) 0.4 % (0-5); MONOCYTES % (AUTO) 6.6 % (4-12); Mean Corpuscular Hemoglobin 29.6 pg (27.0-35.0); NEUTROPHILS % (AUTO) 85.8 % (40-74); Platelet Count 186 bil/L (150-400)
[2017-01-03] MEDS ORDERED: Alum-Mag Hydrox-Simeth 30 mL Suspension PO PRN (10:25)
[2017-01-03] MEDS ORDERED: Polyethylene Glycol (PEG) 17 Gm Powder PO PRN (10:25)
[2017-01-03] MEDS: Ondansetron 2 mg/mL 2 mL Inj IVPUSH SCH (10:27)
[2017-01-03] MEDS: predniSONE 20 mg Tablet PO SCH ×2 (10:27→18:04)
[2017-01-03] MEDS: 0.9% Sodium Chloride 1,000 ML IV SCH ×2 (10:28→23:35)
[2017-01-03] MEDS: Omega-3 Fatty Acids 1,000 mg Capsule PO SCH (10:29)
[2017-01-03] MEDS ORDERED: SODIUM CHLORIDE 0.9% IV ONE (10:30)
[2017-01-03] MEDS ORDERED: _HYDROcodone/APAP 5-325 mg Tablet PO PRN (10:30)
[2017-01-03] MEDS ORDERED: RITUXIMAB IV ONE (10:30)
[2017-01-03] MEDS ORDERED: HYDROcodone-APAP 5-325 mg Tablet PO PRN (10:35)
[2017-01-03 11:05] VITALS: PULSE 73
[2017-01-03 13:19] VITALS: BP 103/71; PULSE 55; RESP 18; O2SAT 99
[2017-01-03] MEDS ORDERED: Sodium Chloride LOK Flush 10 mL Syringe IVFLUSH PRN ×2 (13:20)
[2017-01-03] MEDS: ETOPOSIDE IV SCH (13:52)
[2017-01-03] MEDS: VINCRISTINE IV SCH (13:52)
[2017-01-03] MEDS: DOXORUBICIN IV SCH (13:52)
[2017-01-03] MEDS: [UNRECOGNIZED DRUG - OTHER] IV SCH (13:52)
[2017-01-03 17:55] VITALS: BP 120/80; PULSE 69; RESP 18; O2SAT 96
[2017-01-03 20:00] VITALS: BP 157/80; PULSE 83; RESP 17; O2SAT 92
--- NOTE | 2017-01-03 21:10 | PCM.HPMED ---
Subjective Date of Service Jan 03, 2017 Primary Provider: Admitting Physician: Gerri Gaston DO Primary Care Physician: Glenroy Miranda PA-C Attending Physician: Gerri Gaston DO Admit Status: Direct Admit Chief Complaint: Patient is here for chemotherapy. Thyroid, doxorubicin and vincristine. Per Dr. Manley History of Present Illness: This is a 56-year-old pleasant white female with past medical history of atrial fibrillation (that she has experienced during her first round of chemotherapy admission), mitral regurgitation, non-Hodgkin's lymphoma that has gone to her right breast and also right neck (diagnosed in end of August this year), DJD, GERD is presenting today as a direct admit for Dr. Manley came for chemotherapy. Patient states that this is 3 out of 5, she is admitted with the protocol as she has been doing this time in the hospital. She states that she has no recent fevers, chills, GI symptoms, urine symptoms, chest pain or back pain. She has taken her antibiotic Septra as well as Protonix this a.m. Review of Systems: Complete review of systems performed, pertinent positives and negatives per history of present illness, all other systems reviewed and are negative. Allergies Coded Allergies: No Known Allergies (Verified Allergy, Unknown, 12/13/16) Home Medications Multivitamin, Septra DS one tablets Saturday W F, Compazine, Zofran, prednisone for chemotherapy, Protonix PMH IAfib resolved, mitral regurgitation, non-Hodgkin lymphoma (R Breasts, right neck B cell diffuse typw diagnosed end of August 2016), DJD bilateral knees Surgical History Knee surgery azra, back surgery laminectomy Family History Father had cancer of head and neck Grandfather had bone cancer of unknown primary Patient until grandmother had ovarian cancer Social History Hx Alcohol Use: Yes Hx Substance Use: No Hx Tobacco Use: No Smoking Status: Never Smoker Living Arrangement: with Family (it has been at ) Exam Vital Signs Vital Sign - Last Date Time Temp Pulse Resp B/P Pulse Ox O2 Delivery O2 Flow Rate FiO2 01/03/17 08:36 36.6 70 18 118/76 98 Room Air Exam appropriately interactive HEENT: Normocephalic, atraumatic. External ears without defect. P. Anicteric sclerae, moist conjunctivae, and no lid lag. Oropharynx free of erythema and cobble stoning with moist mucosa. Neck: Supple with full range of motion. No jugular venous distension. No bruits. No lymphadenopathy or thyromegaly. Cardiovascular: Regular rate and rhythm with no murmurs, rubs, or gallops appreciated Pulmonary: Clear to auscultation bilaterally with no crackles, wheezes, or rhonchi. Normal respiratory effort with no use of accessory muscles. Abdomen: Bowel tones present. Soft, mildly tender diffusely, nondistended. No hepatosplenomegaly or masses appreciated. Extremities: No clubbing, cyanosis, edema, or lymphadenopathy appreciated. Skin: Normal temperature, turgor, and texture; Neurological: Cranial nerves grossly intact. Normal muscle strength, tone, and bulk. Reflexes, coordination, and sensory function within normal limits. No known gait impairment. Psychiatric: Normal mood and affect. Alert and oriented to person, place, and time. Lymphatics: Enlarged anterior cervical lymph node 8 cm approximately in length 4 cm in width over her right neck no palpable supraclavicular supraclavicular lymph nodes Lab and Diagnostics Result Diagram: 01/03/17 0354 Assessment & Plan This is a pleasant 56-year-old female with non-Hodgkin's lymphoma B-cell type diffuse is presenting today for chemotherapy per Dr. Manley he plans to do 1 dose of Rituxan followed by 4 days of atopic side, Doxil Cubicin, and consistent for 4 days she will be receiving cyclophosphamide and Non-Hodgkin's lymphoma diffuse large B-cell lymphoma, non germinal cell type active ongoing -- This is round 3/ per patient --Dr. Manley he plans to do 1 dose of Rituxan followed by 4 days of etopiside, doxorubicin, and vinchristine for 4 days she will be receiving cyclophosphamide -- Chemotherapy precautions -- CBC, CMP are drawn -- Heparin subcutaneous Chronic atrial fibrillation paroxysmal currently not on medication -- Patient does have evidence of left atrial dilation on her echo that was done in 11/09, we will place her on telemetry monitoring -- Monitor for paroxysmal A. fib Chronic mitral regurgitation stable -- Mild MVP per 11/09 echo Chronic GERD presumed stable -- Patient may take pantoprazole during this admission CODE STATUS: Full Alternate decision-maker: Patient is admitted under Inpatient status with expected length of stay greater than 2 midnights due to severity of presenting symptoms, risk of adverse event, and complexity of treatment plan. Pain Evaluation: Adequate Pain Control Resuscitation Status: CPR: Attempt Resuscitation ( is POA) Time spent 45 minutes Gerri Gaston DO Jan 03, 2017 10:24
[2017-01-03 23:55] VITALS: PULSE 83
[2017-01-04] VITALS (9 sets, daily range): BP systolic 102–129; BP diastolic 61–82; PULSE 53–79; RESP 16–20; O2SAT 96–100
--- NOTE | 2017-01-04 02:14 | NUR ---
CHEMO/ACTIVITY: Took over care, received report from Beth Stein. Pt. has Chemo infusing at 20.8 ml/hr concurrently with NS at 75 ml/hr. Combination of Etoposide 90 mg, Doxorubicin 18 mg, and Vincristine 0.7 mg. This is Pt's third cycle of this regimen. Bag #1 day 1 of 4 days of treatment. Pt. is tolerating chemo well, denies nausea, vomiting or pain. Declines antianxiety medication. Ambulating to the bathroom independently. Voiding, no report of BM tonight. Visiting with friends at bed side. A & O, vss. On going care.
[2017-01-04] MEDS: Pantoprazole 20 mg ER24 Tablet PO SCH (05:50)
[2017-01-04 06:22] LABS: BASOPHILS % (AUTO) 0.1 % (0-3); EOSINOPHILS % (AUTO) 0 % (0-5); MONOCYTES % (AUTO) 1.1 % (4-12); Mean Corpuscular Hemoglobin 28.9 pg (27.0-35.0); Platelet Count 191 bil/L (150-400)
[2017-01-04] MEDS: Omega-3 Fatty Acids 1,000 mg Capsule PO SCH (08:30)
[2017-01-04] MEDS ORDERED: Trimethoprim-Sulfa 160 mg-800 mg Tablet PO SCH (08:30)
[2017-01-04] MEDS ORDERED: LECITHIN PO SCH (08:30)
[2017-01-04] MEDS: predniSONE 20 mg Tablet PO SCH ×2 (08:52→18:16)
[2017-01-04] MEDS ORDERED: _Trimethoprim-Sulfa 160/800 mg Tablet PO SCH (10:30)
[2017-01-04] MEDS: 0.9% Sodium Chloride 1,000 ML IV SCH (13:11)
[2017-01-04] MEDS: VINCRISTINE IV SCH (13:51)
[2017-01-04] MEDS: ETOPOSIDE IV SCH (13:51)
[2017-01-04] MEDS: DOXORUBICIN IV SCH (13:51)
[2017-01-04] MEDS: [UNRECOGNIZED DRUG - OTHER] IV SCH (13:51)
[2017-01-04] MEDS: Ondansetron 2 mg/mL 2 mL Inj IVPUSH SCH (13:52)
--- NOTE | 2017-01-04 18:26 | NUR ---
Chemo: Day 2 Day 2 started at ~1355. Etoposide/Doxorubicin/Vincristine infusing at 20.8ml/hr concurrently with NS at 75ml/hr via single lumen PICC at Left. Brisk blood return checked and present prior to starting infusing. VSS. No questions/concerns prior to start.
--- NOTE | 2017-01-04 18:45 | PCM.PNMED ---
Subjective Date of Service Jan 04, 2017 Subjective Patient is on day #2 of chemotherapy, she is ambulating in the hallways. Denies fevers, chills, rashes, diarrhea, nausea vomiting. No concerns Exam Vital Signs Vital Sign - Last Date Time Temp Pulse Resp B/P Pulse Ox O2 Delivery O2 Flow Rate FiO2 01/04/17 04:35 36.3 65 16 102/62 97 Room Air Intake and Output 01/03/17 01/03/17 01/04/17 Cumulative From/Thru 14:59 22:59 06:59 01/03/17 12:43 - 01/04/17 06:10 Intake Total 1782 ml 1720 ml 3502 ml Output Total 1600 ml 1500 ml 3100 ml Balance 182 ml 220 ml 402 ml Intake Oral 800 ml 520 ml 1320 ml IV Total 982 ml 1200 ml 2182 ml Output Urine Total 1600 ml 1500 ml 3100 ml # Bowel Movements 0 0 0 Exam Gen.: No acute distress HEENT: Normocephalic, atraumatic. Neck on the right side her lymph node appears to be more faded and darker than yesterday, extraocular movements intact Heart: Regular rate and rhythm no S3-S4 murmurs Lungs: Clear to auscultation bilaterally no crackles or wheezes Abdomen: Non-tender, soft nondistended Extremities: Mild, symmetric swelling is present bilaterally Neurological: Intact, no focal deficits Psychiatric: Remarkable for rapid speech but otherwise affect is pleasant more is interactive IVs and Medications Medications Reviewed: Medications were reviewed in detail Lab and Diagnostics Result Diagram: 01/04/17 0555 01/03/17 0930 Assessment & Plan This is a pleasant 56-year-old female with non-Hodgkin's lymphoma B-cell type diffuse is presenting today for chemotherapy per Dr. Sindhu borrero plans to do 1 dose of Rituxan followed by 4 days of atopic side, Doxil Cubicin, and consistent for 4 days she will be receiving cyclophosphamide and Non-Hodgkin's lymphoma diffuse large B-cell lymphoma, non germinal cell type active ongoing -- This is round 3/5 per patient, day #2/5 --Dr. Sindhu borrero plans to do 1 dose of Rituxan followed by 4 days of etopiside, doxorubicin, and vinchristine for 4 days she will be receiving cyclophosphamide -- Chemotherapy precautions -- CBC, CMP are drawn -- Heparin subcutaneous for DVT prophylaxis Anemia secondary to chemotherapy present on admission stable -- Monitor with the CBC -- Consider iron supplementation -- Iron panel/Folate/B12 is ordered Chronic atrial fibrillation paroxysmal currently not on medication -- Patient does have evidence of left atrial dilation on her echo that was done in 11/09, we will place her on telemetry monitoring -- Monitor for paroxysmal A. fib: no overnight tele monitoring events, she maintained normal rate normal sinus rhythm Chronic mitral regurgitation stable -- Mild MVP per 11/09 echo Chronic GERD presumed stable -- Patient may take pantoprazole during this admission CODE STATUS: Full Alternate decision-maker: Patient is admitted under Inpatient status with expected length of stay greater than 2 midnights due to severity of presenting symptoms, risk of adverse event, and complexity of treatment plan. Resuscitation Status: CPR: Attempt Resuscitation ( is POA) Time spent 25 min Gerri Gaston DO Jan 04, 2017 07:30
[2017-01-04 19:14] LABS: Unsaturated Iron Binding 133.2 ug/dL
--- NOTE | 2017-01-04 19:53 | PCM.ADCARE ---
Advance Care Planning Note Purpose of Encounter: To understand patient's goals of care by discussing her current health, treatments and parts counterman prognosis Parties in Attendance: Patient and Dr. derrick Gaston Decisional Capacity: Good Subjective: Patient states that she feels fortunate to be able to afford cancer treatments and she understands that they are pretty expensive, she feels that she can take good care of herself. She has tolerated her prior sessions of chemotherapy well , and feels that her treatments are coming along well Objective: I reviewed her non-Hodgkin's lymphoma diffuse B cell malignancy diagnosis and her desire for ongoing aggressive care including intubation and potential mechanical ventilation should she be unable to breath on her own; also discussed who would speak on her behalf should she be unable to do so and discussed what conversation she had had with her family so they understand her desires if such situation occurred now or in the future. Plan: Patient will remain full code. We will assist her in making her chemotherapy sessions successful in the hospital setting. She has been tolerating treatment very well so far CODE STATUS: Full code is alternate decision-maker Time Spent Adv.Care Planning: Total time spent [id number] and education directly related to advanced planning 30 min Adv. Care Plan Documenation: Documented as well also in history and physical Gerri Gaston DO Jan 04, 2017 19:52
[2017-01-05] VITALS (9 sets, daily range): BP systolic 102–121; BP diastolic 53–76; PULSE 53–68; RESP 16–18; O2SAT 97–100
[2017-01-05] MEDS: 0.9% Sodium Chloride 1,000 ML IV SCH ×2 (02:27→14:00)
--- NOTE | 2017-01-05 05:26 | NUR ---
Activity Etoposide/Doxorubicin/Vincristine continues to infuse at 20.8ml/hr and maintenance fluids NS at 75ml/hr. Brisk blood return through SL PICC. Pt denies pain or nausea. Reports neuropathy in hands, but this remains the same and unchanged since admission. Pt walked for a whole hour independently prior to bedtime. Pt reports sleeping well overnight.
[2017-01-05 05:36] LABS: BASOPHILS % (AUTO) 0 % (0-3); EOSINOPHILS % (AUTO) 0 % (0-5); MONOCYTES % (AUTO) 3.3 % (4-12); Mean Corpuscular Hemoglobin 29.4 pg (27.0-35.0); Mean Corpuscular Volume 86.3 fL (81-100); NEUTROPHILS % (AUTO) 93.3 % (40-74); Platelet Count 173 bil/L (150-400)
[2017-01-05] MEDS: Pantoprazole 20 mg ER24 Tablet PO SCH (06:00)
[2017-01-05 08:10] LABS: Vitamin B12 >1999 pg/mL (211-946)
[2017-01-05] MEDS: Omega-3 Fatty Acids 1,000 mg Capsule PO SCH (08:30)
[2017-01-05] MEDS: predniSONE 20 mg Tablet PO SCH ×2 (08:37→18:42)
[2017-01-05] MEDS: Ondansetron 2 mg/mL 2 mL Inj IVPUSH SCH (14:00)
[2017-01-05] MEDS: ETOPOSIDE IV SCH (14:01)
[2017-01-05] MEDS: [UNRECOGNIZED DRUG - OTHER] IV SCH (14:01)
[2017-01-05] MEDS: DOXORUBICIN IV SCH (14:01)
[2017-01-05] MEDS: VINCRISTINE IV SCH (14:01)
--- NOTE | 2017-01-05 16:25 | NUR ---
Chemo: Day 3 Pt tolerating chemo without issue, did state feeling dizzy just prior to starting third dose - shortly after ate lunch and stated resolved dizziness. VSS, PICC patent with brisk blood return present, No questions/concerns prior to start of third dose. Infusing at 1400. Doxorubicin/Etoposide/Vincristine infusing at 20.8ml/hr concurrently with NS at 75ml/hr. Care continues.
--- NOTE | 2017-01-05 17:47 | NUR ---
Social Work Note: Attempted Initial Assessment Data& Assessment: ELECTRICAL INSTALLATION INSPECTOR attempted to meet with pt at bedside to complete initial Assessment. Pt was having a visitor and requested ELECTRICAL INSTALLATION INSPECTOR return tomorrow morning. Jacqui Duggan is a 56 year old female admitted on 01/03/2017 for B-Cell Lymphoma. Pt comes from home with her spouse and is independent with mobility at baseline. ELECTRICAL INSTALLATION INSPECTOR to follow up regarding initial assessment. Plan: Anticipated discharge home when medically ready. ELECTRICAL INSTALLATION INSPECTOR to follow up regarding initial assessment. CATIA Wayne
--- NOTE | 2017-01-05 20:35 | PCM.PNMED ---
Subjective Date of Service Jan 05, 2017 Subjective Seen and examined the patient. She states that she is doing well without any side effects of chemotherapy. He discussed at length her treatments. Became emotional and teary eyed at one point. Discussed diagnosis, workup, imaging, and treatment plan with patient and she expressed an verbalized her understanding. Exam Vital Signs Vital Sign - Last Date Time Temp Pulse Resp B/P Pulse Ox O2 Delivery O2 Flow Rate FiO2 01/05/17 06:05 55 01/05/17 05:12 36.4 16 107/56 98 Room Air Intake and Output 01/04/17 01/04/17 01/05/17 Cumulative From/Thru 15:00 23:00 07:00 01/03/17 12:43 - 01/05/17 06:01 Intake Total 1578 ml 1358 ml 6438 ml Output Total 1200 ml 2100 ml 6400 ml Balance 378 ml -742 ml 38 ml Intake Oral 400 ml 400 ml 2120 ml IV Total 1178 ml 958 ml 4318 ml Output Urine Total 1200 ml 2100 ml 6400 ml # Bowel Movements 0 0 0 Exam Gen.: No acute distress HEENT: Normocephalic, atraumatic. Neck on the right side her lymph node appears to be more faded and darker than at admission, extraocular movements intact Heart: Regular rate and rhythm no S3-S4 murmurs Lungs: Clear to auscultation bilaterally no crackles or wheezes Abdomen: soft nondistended Extremities: Patient has been compression hose today Neurological: Intact, no focal deficits Psychiatric: Affect is emotional mood is neutral IVs and Medications IV Fluids She continues to be on normal saline 75 mL per hour Medications Reviewed: Medications were reviewed in detail Lab and Diagnostics Result Diagram: 01/05/1752401/05/17524 Assessment & Plan This is a pleasant 56-year-old female with non-Hodgkin's lymphoma B-cell type diffuse is presenting today for chemotherapy per Dr. Sindhu borrero plans to do 1 dose of Rituxan followed by 4 days of etopiside, Doxorubicin, and Vinchristine for 4 days she will be receiving cyclophosphamide Non-Hodgkin's lymphoma diffuse large B-cell lymphoma, non germinal cell type active ongoing -- This is round 3 per patient, day #25 --Dr. Sindhu borrero plans to do 1 dose of Rituxan followed by 4 days of etopiside, doxorubicin, and vinchristine for 4 days she will be receiving cyclophosphamide -- Chemotherapy precautions -- CBC, CMP are drawn -- Heparin subcutaneous for DVT prophylaxis Elevated ALT, chronic -- Likely due to fatty liver versus autoimmune conditions versus chemotherapy drugs -- Abdominal ultrasound is ordered Normocytic Anemia secondary to chemotherapy versus chronic disease present on admission stable -- Monitor with the CBC -- Iron panel/Folate/B12 is ordered: Her iron panel is essentially normal with the exception of ferritin days elevated, vitamin B12 levels are elevated and folate is within normal -- Reticulocyte count -- We will discuss with Dr. Manley Chronic atrial fibrillation paroxysmal currently not on medication -- Patient does have evidence of left atrial dilation on her echo that was done in 11/09, we will place her on telemetry monitoring -- Monitor for paroxysmal A. fib: no overnight tele monitoring events, she maintained normal rate normal sinus rhythm Chronic mitral regurgitation stable -- Mild MVP per 11/09 echo Chronic GERD presumed stable -- Patient may take pantoprazole during this admission CODE STATUS: Full Alternate decision-maker: Patient is admitted under Inpatient status with expected length of stay greater than 2 midnights due to severity of presenting symptoms, risk of adverse event, and complexity of treatment plan. Resuscitation Status: CPR: Attempt Resuscitation ( is POA) Time spent 30 minutes Gerri Gaston DO Jan 05, 2017 07:17
[2017-01-06] VITALS (10 sets, daily range): BP systolic 108–120; BP diastolic 62–75; PULSE 47–68; RESP 16–19; O2SAT 98–100
--- NOTE | 2017-01-06 02:54 | NUR ---
Activity Etoposide/Doxorubicin/Vincristine infusing at 20.8ml/hr and NS at 75ml/hr through SL PICC with brisk blood return. Pt independent in room and walked in the halls for 30 min tonight. Pt wearing sandra hose bilaterally. Pt offers no new complaints overnight.
[2017-01-06] MEDS: 0.9% Sodium Chloride 1,000 ML IV SCH ×2 (03:02→16:04)
[2017-01-06 05:39] LABS: BASOPHILS % (AUTO) 0 % (0-3); EOSINOPHILS % (AUTO) 0 % (0-5); MONOCYTES % (AUTO) 7.3 % (4-12); Mean Corpuscular Hemoglobin 29.2 pg (27.0-35.0); Mean Corpuscular Volume 85.6 fL (81-100); NEUTROPHILS % (AUTO) 89.1 % (40-74); Platelet Count 164 bil/L (150-400)
[2017-01-06] MEDS: Omega-3 Fatty Acids 1,000 mg Capsule PO SCH (08:30)
[2017-01-06] MEDS: predniSONE 20 mg Tablet PO SCH ×2 (10:08→18:52)
[2017-01-06] MEDS: Pantoprazole 20 mg ER24 Tablet PO SCH (10:08)
--- NOTE | 2017-01-06 10:33 | PROG NOTE ---
[address] [address] PROGRESS NOTE PATIENT: BHUPINDER FOOTE : 1960 MR#: [id number] ADMIT: 01/03/2017 JOB ID: [id number] DATE: 01/06/2017 SUBJECTIVE: The patient is being seen today per hospital rounds. She carries a diagnosis of diffuse large B-cell lymphoma non-germinal cell like subtype. The patient is currently on cycle three day three of dose adjusted are R-EPOCH. Clinically, patient has tolerated her treatment without significant side effects. Specifically, she has had no recurrence of the neuropathy which typically occurs on day two of therapy. In addition, she has had no problems with constipation or cramping. She remains energetic, walking the hallways throughout the day. She is not aware of any nausea, vomiting, fevers, or chills. The patient also denies any chest pains, palpitations, and lightheadedness. Review of past for with telemetry shows that she continues to show sinus bradycardia at night with heart rates dropping down to as low as 35 at sleep. The patient is not aware of her bradycardia events. Finally the patient had an ultrasound of the liver done earlier this morning to evaluate her elevated ALT. PHYSICAL EXAMINATION: Vital signs today reporting a weight of 74.7 kg, which is up 2.8 kg from admission. Blood pressure 120/72, temperature 36, with a T-max since admission at 36.6. Respiratory at 16. She is saturating at 98% room air. She is A and O x3 in good spirits sitting up in a chair eating breakfast. Affect is appropriate. LABORATORY DATA: From January 06, 2017 showing a white cell count of 2.5, hemoglobin of 8.7, platelet count of 164. Sodium 138, potassium 4.1, serum creatinine 0.57. AST 33, ALT 83, alk phos 72. ASSESSMENT AND PLAN: The patient is a very pleasant 56-year-old female tolerating dose adjusted R-EPOCH cycle three day three today without significant symptoms. The patient has had no flare of her neuropathy as her vincristine dose was adjusted back to baseline with this cycle. The patient's sinus bradycardia is asymptomatic. Likely she has an intact SA node. No signs to suggest infection or UT. She has had no other significant arrhythmias per telemetry. Recommendations for the patient today or is to obtain an EKG. We will also draw a TSH today. An echocardiogram and a sleep apnea study will be ordered as an outpatient. I will see the patient tomorrow on January 07, 2017 to review her EKG, ultrasound, and blood work prior to her discharge. She otherwise had no further questions.
--- NOTE | 2017-01-06 11:20 | DRSVH ---
PROCEDURE: US ABDOMEN ([id number]) INDICATIONS: Check for fatty liver; elevated ALT history of lymphoma recently active. TECHNIQUE: Real-time scanning was performed of the abdominal and retroperitoneal organs, with image documentatio n. COMPARISON: None. FINDINGS: Liver: Liver is normal in size at 14 cm in length and homogeneous in echotexture. Echogenicity is m ildly diffusely increased suggesting fatty infiltration may be present as the most likely cause of an infiltrative process. Gallbladder: Macro gallbladder. There is a very small amount of ascites present in King's pouch a nd in the area of the gallbladder. Biliary ducts: Intrahepatic bile ducts are non-dilated. Extrahepatic bile duct caliber measures 4.1 mm. Normal is 6-7 mm or less in diameter, or 10 mm or less post-cholecystectomy. Pancreas: In the region of the head or uncinate process of the pancreas there is suggestion of a 3 cm area of decreased attenuation. In this patient being treated for lymphoma a new mass or lymph node t hat is enlarged cannot be excluded. Spleen: Spleen although measuring up to 12.4 cm in length is thought to be enlarged based upon its c ontour. Kidneys: Kidneys are normal in size and echotexture. Right kidney measures 13 cm long; left kidney measures 12 cm long. No hydronephrosis or nephrolithiasis. No solid masses. Aorta: The entire abdominal aorta is normal in caliber at less than 3 cm. Iliacs: Proximal common iliac arteries are normal in caliber at less than 2.5 cm. in greatest 12 and the left 10 mm IVC: Intrahepatic inferior vena cava is patent. Miscellaneous: No free abdominal fluid. IMPRESSION: 1. Small amount of ascites, minuscule in Morison's pouch and next to the gallbladder. Gallbladder its elf is considered normal in appearance. 2. Question of up to 3 cm hypoechoic ill-defined lesion in the head of the pancreas. This is not seen on the CT scan of the PET/CT of 11/09/[address] scan of 10/29/16. It would potentially be an enlarge d lymph node or lymphomatous mass. It is not well-seen and artifact may be the cause as well. 3. Splenic enlargement is considered to be present. 4. Diffusely mildly increased echogenicity of the liver. This is mild, likely fatty infiltration as n o focal abnormality is appreciated. Lymphoma however could be diffusely present. Dictated by: Patrick Ross M.D. on 01/06/2017 at 11:08 Approved by: Patrick Ross M.D. on 01/06/2017 at 11:19
[2017-01-06] MEDS ORDERED: DOXORUBICIN IV SCH (13:25)
[2017-01-06] MEDS ORDERED: ETOPOSIDE IV SCH (13:25)
[2017-01-06] MEDS ORDERED: VINCRISTINE IV SCH (13:25)
[2017-01-06] MEDS ORDERED: [UNRECOGNIZED DRUG - OTHER] IV SCH (13:25)
[2017-01-06] MEDS: Ondansetron 2 mg/mL 2 mL Inj IVPUSH SCH (14:03)
--- NOTE | 2017-01-06 14:29 | NUR ---
Chemotherapy: Day 4 Pt on bag 4 of 4 for combination chemo of Doxorubicin, Etoposide and Vincristine. Pt A&Ox3, BURNS, VS - HR luis (asymptomatic) - tele in place, Premedicated with 16mg IVP Zofran, PICC to Left arm with brisk blood return present, No questions/concerns prior to start of infusion. Chemotherapy infusing at 21.4ml/hr to make up for overfill per Markus Weinstein Pharmacist; running concurrently with NS at 75ml/hr. Care continues. Addendum: 01/06/17 at 1432 by NATALY DOSHI RN Amended: Links added.
--- NOTE | 2017-01-06 14:40 | NUR ---
Social Work- Initial Assessment/Readiness for Discharge/Multidisciplinary Rounds Data: See Initial Assessment. Pt is a 56 year old female admitted for inpatient chemo for B-cell Lymphoma. Pt's insurance is [employer] [facility]. Pt's PCP is Glenroy Miranda PA-C. Pt discussed in multidisciplinary rounds, no SW needs identified. Pt to d/c home when her chemotherapy is completed. SW met with pt at bedside regarding discharge plan, SW role explained. Pt alert and oriented x3. Pt resides at home with her where she is independent at baseline. No concerns related to pt's capacity for self-care. Pt is observed ambulating around the unit frequently. Pt has no HH or SNF history. No LTC or VA benefits. DPOA paperwork is not complete, pt has the information to complete this. Pt to d/c home with her spouse to transport via POV. No anticipated d/c needs. SW will continue to follow. Assessment: Pt who is independent with ADLs and self-care Plan: Pt to d/c home with her spouse to transport via POV. No anticipated d/c needs. SW will continue to follow. CATIA Betancourt Addendum: 01/06/17 at 1443 by SHANTHI CARUSO Amended: Links added.
--- NOTE | 2017-01-06 20:20 | PCM.PNMED ---
Subjective Date of Service Jan 06, 2017 Subjective Patient is seen ambulating in the halls earlier in the day. Currently she is visiting with a friend in the room. Denies fevers, chills, she states that she has no symptoms of bradycardia, weakness or syncope. Exam Vital Signs Vital Sign - Last Date Time Temp Pulse Resp B/P Pulse Ox O2 Delivery O2 Flow Rate FiO2 01/06/17 05:51 67 01/06/17 05:15 36.3 18 117/68 100 Room Air Intake and Output 01/05/17 01/05/17 01/06/17 Cumulative From/Thru 15:00 23:00 07:00 01/03/17 12:43 - 01/06/17 06:28 Intake Total 2277 ml 1235 ml 9950 ml Output Total 1500 ml 1800 ml 9700 ml Balance 777 ml -565 ml 250 ml Intake Oral 1000 ml 250 ml 3370 ml IV Total 1277 ml 985 ml 6580 ml Output Urine Total 1500 ml 1800 ml 9700 ml # Bowel Movements 0 0 Exam Gen.: No acute distress sitting up chatting with friends HEENT: Normocephalic, atraumatic Heart: Regular rate and rhythm no S3-S4 murmur Lungs clear to auscultation without crackles or wheezes Abdomen nondistended Extremities: Compression hose is present, normal range of motion Neurological: No focal deficits Skin: Palpable right neck lymphadenopathy, dark color discoloration can be seen Lymphatics Palpable right neck lymphadenopathy Psychiatric: He is pleasant, affect is alert IVs and Medications Medications Reviewed: Medications were reviewed in detail Lab and Diagnostics Result Diagram: 01/06/17 0503 01/06/17 0503 X-Rays, CTs and MRIs PROCEDURE: US ABDOMEN ([id number]) INDICATIONS: Check for fatty liver; elevated ALT history of lymphoma recently active. TECHNIQUE: Real-time scanning was performed of the abdominal and retroperitoneal organs, with image documentation. COMPARISON: None. FINDINGS: IMPRESSION: 1. Small amount of ascites, minuscule in Morison's pouch and next to the gallbladder. Gallbladder itself is considered normal in appearance. 2. Question of up to 3 cm hypoechoic ill-defined lesion in the head of the pancreas. This is not seen on the CT scan of the PET/CT of 11/09/[address] scan of 10/29/16. It would potentially be an enlarged lymph node or lymphomatous mass. It is not well-seen and artifact may be the cause as well. 3. Splenic enlargement is considered to be present. 4. Diffusely mildly increased echogenicity of the liver. This is mild, likely fatty infiltration as no focal abnormality is appreciated. Lymphoma however could be diffusely present. Dictated by: Patrick Ross M.D. on 01/06/2017 at 11:08 Approved by: Patrick Ross M.D. on 01/06/2017 at 11:19 Assessment & Plan This is a pleasant 56-year-old female with non-Hodgkin's lymphoma B-cell type diffuse is presenting today for chemotherapy per Dr. Manley he plans to do 1 dose of Rituxan followed by 4 days of etopiside, Doxorubicin, and Vinchristine for 4 days she will be receiving cyclophosphamide Non-Hodgkin's lymphoma diffuse large B-cell lymphoma, non germinal cell type active ongoing -- This is round 3 per patient, day #45 --Dr. Manley he plans to do 1 dose of Rituxan followed by 4 days of etopiside, doxorubicin, and vinchristine for 4 days she will be receiving cyclophosphamide -- Chemotherapy precautions -- CBC, CMP daily -- Heparin subcutaneous for DVT prophylaxis Elevated ALT, chronic currently trending down slightly -- Likely due to fatty liver versus autoimmune conditions versus chemotherapy drugs -- Abdominal ultrasound is ordered: Shows fatty liver, also remarkable for " Question of up to 3 cm hypoechoic ill-defined lesion in the head of the pancreas. This is not seen on the CT scan of the PET/CT of 11/09/[address] scan of 10/29/16. It would potentially be an enlarged lymph node or lymphomatous mass. It is not well-seen and artifact may be the cause as well. Splenic enlargement is considered to be present. Diffusely mildly increased echogenicity of the liver. This is mild, likely fatty infiltration as no focal abnormality is appreciated. Lymphoma however could be diffusely present." -- We will discuss with Dr. Manley prior to giving this full result the patient. We did discuss fatty liver in the room Normocytic Anemia secondary to chemotherapy versus chronic disease present on admission stable -- Monitor with the CBC -- Hemoglobin is trending down 8.7 on 01/06. Discussed with a threshold of 7.[address] Manley -- Iron panel/Folate/B12 is ordered: Her iron panel is essentially normal with the exception of ferritin is elevated, vitamin B12 levels are elevated and folate is within normal -- Consider altering Reticulocyte count -- Dr. Manley states to hold off on any iron supplementation Leukocytopenia acute on 01/06 -- White count has been trending down today 2.5 on 01/06 -- Per Dr. Manley: No Neupogen at this time Bradycardia acute 01/06 -- The telemetry monitoring patient has been between 30s and 50s. She is completely asymptomatic. Discussed case with Dr. Manley, who feels that this may be secondary to chemotherapy medications versus patient's baseline active/ healthy status -- Dr. Aaron will follow-up with echocardiogram and obstructive sleep apnea sleep study as outpatient -- Continue to monitor Chronic atrial fibrillation paroxysmal currently not on medication -- Patient does have evidence of left atrial dilation on her echo that was done in 11/09, we will place her on telemetry monitoring -- Monitor for paroxysmal A. fib: no overnight tele monitoring events, she maintained normal rate rather bradycardic heart rate overnight Chronic mitral regurgitation stable -- Mild MVP per 11/09 echo Chronic GERD presumed stable -- Patient may take pantoprazole during this admission CODE STATUS: Full Alternate decision-maker: Patient is admitted under Inpatient status with expected length of stay greater than 2 midnights due to severity of presenting symptoms, risk of adverse event, and complexity of treatment plan. High-risk medications:etopiside, Doxorubicin, and Vincristine Pain Evaluation: Adequate Pain Control VTE Mechanical Devices: Anti-Embolic stockings Resuscitation Status: CPR: Attempt Resuscitation ( is POA) Time spent 30 minutes Gerri Gaston DO Jan 06, 2017 07:30
--- NOTE | 2017-01-06 23:20 | NUR ---
CHEMO; infusing without problems. No c/o nausea or vomiting. Up in hallway independently. At h.s. pt verbalized feelings regarding body image, dx future. Active listening done.
[2017-01-07 00:42] VITALS: BP 124/74; PULSE 49; RESP 16; O2SAT 99
[2017-01-07] MEDS: 0.9% Sodium Chloride 1,000 ML IV SCH (05:15)
[2017-01-07] MEDS: Pantoprazole 20 mg ER24 Tablet PO SCH (05:39)
[2017-01-07 06:05] VITALS: BP 134/68; PULSE 50; RESP 16; O2SAT 100
[2017-01-07 06:10] LABS: BASOPHILS % (AUTO) 0 % (0-3); EOSINOPHILS % (AUTO) 0 % (0-5); MONOCYTES % (AUTO) 4.3 % (4-12); Mean Corpuscular Hemoglobin 29.8 pg (27.0-35.0); Mean Corpuscular Volume 83.3 fL (81-100); Platelet Count 175 bil/L (150-400)
[2017-01-07] MEDS: Omega-3 Fatty Acids 1,000 mg Capsule PO SCH (08:30)
[2017-01-07] MEDS ORDERED: Trimethoprim-Sulfa 160 mg-800 mg Tablet PO SCH (08:30)
[2017-01-07] MEDS: predniSONE 20 mg Tablet PO SCH ×2 (08:46→17:06)
[2017-01-07 08:49] VITALS: PULSE 63
[2017-01-07] MEDS ORDERED: Palonosetron 0.05 mg/mL 5 mL Inj IV ONE (10:00)
[2017-01-07 11:25] VITALS: BP 130/81; RESP 18; O2SAT 99
--- NOTE | 2017-01-07 12:01 | NUR ---
Social Work- Discharge Data: EMR reviewed. Pt is on day 4 of hospitalization. Pt discussed in multidisciplinary rounds, pt to d/c today. Pt to discharge home with to transport via POV. Pt declines any unmet needs. Pt is independent at baseline. No discharge needs identified. Assessment: Pt who is independent at baseline. Plan: Pt to discharge home with to transport via POV. No discharge needs identified. CATIA Betancourt
--- NOTE | 2017-01-07 12:58 | PCM.DIMED ---
Discharge Instructions Date of Service Jan 07, 2017 Dates of Hospitalization Jan 03, 2017 at 08:25 Discharge Diagnosis Discharge Diagnosis chemotherapy for Non Hodgkin's Diffuse B cell Lymphoma Medication Instructions Additional med instructions There have been no changes to your home medications Diet Discharge Diet: No restrictions Activity Discharge Activity: No restrictions Call your provider Call your provider for: Fever or Chills, Shortness of breath, Bleeding, Chest pain, Vomitting, Excessive diarrhea, Weakness (unilateral), Other Patient Instructions Patient Instructions Please f/u with Dr. Manley on 01/09/17 Follow-up plan Please f/u with Dr. Manley on 01/09/17 Dr. Manley to address f/u labs, Echo, Sleep study and any other imaging at the follow up Gerri Gaston DO Jan 07, 2017 12:58
--- NOTE | 2017-01-07 12:59 | PCM.DC.MED ---
Discharge Summary Date of Service Jan 07, 2017 Dates of Hospitalization Date of Hospital Admission Jan 03, 2017 at 08:25 Date of Discharge: Jan 07, 2017 Providers: Admitting Physician: Gerri Gaston DO Primary Care Physician: Glenroy Miranda PA-C Attending Physician: Gerri Gaston DO Diagnosis at Time of Discharge Diagnosis at Time of Discharge chemotherapy for Non Hodgkin's Diffuse B cell Lymphoma Procedures XRay, CTs & MRIs PROCEDURE: US ABDOMEN ([id number]) INDICATIONS: Check for fatty liver; elevated ALT history of lymphoma recently active. TECHNIQUE: Real-time scanning was performed of the abdominal and retroperitoneal organs, with image documentation. COMPARISON: None. FINDINGS: IMPRESSION: 1. Small amount of ascites, minuscule in Morison's pouch and next to the gallbladder. Gallbladder itself is considered normal in appearance. 2. Question of up to 3 cm hypoechoic ill-defined lesion in the head of the pancreas. This is not seen on the CT scan of the PET/CT of 11/09/[address] scan of 10/29/16. It would potentially be an enlarged lymph node or lymphomatous mass. It is not well-seen and artifact may be the cause as well. 3. Splenic enlargement is considered to be present. 4. Diffusely mildly increased echogenicity of the liver. This is mild, likely fatty infiltration as no focal abnormality is appreciated. Lymphoma however could be diffusely present. Dictated by: Patrick Ross M.D. on 01/06/2017 at 11:08 Approved by: Patrick Ross M.D. on 01/06/2017 at 11:19 Brief History This is a 56-year-old pleasant white female with past medical history of atrial fibrillation (that she has experienced during her first round of chemotherapy admission), mitral regurgitation, non-Hodgkin's lymphoma that has gone to her right breast and also right neck (diagnosed in end of August this year), DJD, GERD presented as a direct admit for Dr. Manley came for chemotherapy. Hospital Course This is a pleasant 56-year-old female with non-Hodgkin's lymphoma B-cell type diffuse is presenting today for chemotherapy per Dr. Manley he plans to do 1 dose of Rituxan followed by 4 days of etopiside, Doxorubicin, and Vinchristine for 4 days she will be receiving cyclophosphamide Non-Hodgkin's lymphoma diffuse large B-cell lymphoma, non germinal cell type active ongoing -- This is round 07/01 per patient, day #08/31 --Dr. Manley planned 1 dose of Rituxan followed by 4 days of Etopiside, doxorubicin, and vincristine for 4 days she will be receiving cyclophosphamide -- Chemotherapy precautions -- CBC, CMP daily -- Heparin subcutaneous for DVT prophylaxis Elevated ALT, chronic currently trending down -- Likely due to fatty liver versus autoimmune conditions versus chemotherapy drugs -- Abdominal ultrasound is ordered: Shows fatty liver, also remarkable for " Question of up to 3 cm hypoechoic ill-defined lesion in the head of the pancreas. This is not seen on the CT scan of the PET/CT of 11/09/[address] scan of 10/29/16. It would potentially be an enlarged lymph node or lymphomatous mass. It is not well-seen and artifact may be the cause as well. Splenic enlargement is considered to be present. Diffusely mildly increased echogenicity of the liver. This is mild, likely fatty infiltration as no focal abnormality is appreciated. Lymphoma however could be diffusely present." -- It appears Dr. Manley has gone over the US result with the patient this am and answered all her questions on 01/07/17. Normocytic Anemia secondary to chemotherapy versus chronic disease present on admission stable -- Monitor with the CBC -- Hemoglobin is trending down 8.7 on 01/06. Discussed with a threshold of 7.[address] Manley -- Iron panel/Folate/B12 is ordered: Her iron panel is essentially normal with the exception of ferritin is elevated, vitamin B12 levels are elevated and folate is within normal -- Consider altering Reticulocyte count -- Dr. Manley states to hold off on any iron supplementation Leukocytopenia acute on 01/06 -- White count has been trending down today 2.1 on 01/06 -- Per Dr. Manley: No Neupogen at this time Bradycardia acute 01/06 ongoing improved -- The telemetry monitoring patient has been between 40s and 50s. She is completely asymptomatic. Discussed case with Dr. Manley, who feels that this may be secondary to chemotherapy medications versus patient's baseline active/ healthy status -- Dr. Manley will follow-up with echocardiogram and obstructive sleep apnea sleep study as outpatient -- EKG was ordered by Dr. Manley did not show changes from admission time, still appears to have flattened ST in leads 1 and 2 which is a nonspecific finding -- Continue to monitor Chronic atrial fibrillation paroxysmal currently not on medication -- Patient does have evidence of left atrial dilation on her echo that was done in 11/09, we will place her on telemetry monitoring -- Monitor for paroxysmal A. fib: no overnight tele monitoring events, she maintained normal rate rather bradycardic heart rate overnight Chronic mitral regurgitation stable -- Mild MVP per 11/09 echo Chronic GERD presumed stable -- Patient may take pantoprazole during this admission CODE STATUS: Full Alternate decision-maker: Patient is admitted under Inpatient status with expected length of stay greater than 2 midnights due to severity of presenting symptoms, risk of adverse event, and complexity of treatment plan. High-risk medications:etopiside, Doxorubicin, and Vincristine Exam Vital Signs (Last) Date Time Temp Pulse Resp B/P Pulse Ox O2 Delivery O2 Flow Rate FiO2 01/07/17 11:25 36.5 18 130/81 99 Room Air 01/07/17 08:49 63 Exam Gen.: No acute distress HEENT: NCAT Heart: RRR, no s3/s4 murmurs Abd: Non distended Psych: Mildly anxious Neuro: No deficits Skin: Warm and Dry Neck: post cervical Lymph node, unchanged in appearance Test 01/04/17 05:55 01/06/17 05:03 01/07/17 05:45 Iron Level 119ug/dL (35-150) Total Iron Binding Capacity 252ug/dL (250-450) Percent Iron Saturation 47%sat (15-50) Unsaturated Iron Binding 133.2ug/dL Ferritin 607ng/mL (13-150) Vitamin B12 Level >1999pg/mL (211-946) Folate > 19.9ng/mL (>3.0) Thyroid Stimulating Hormone (TSH) 0.549uIU/mL (0.450-4.500) White Blood Count 2.1th/mm3 (3.8-10.1) Red Blood Count 2.99mil/mm3 (3.90-5.20) Hemoglobin 8.9g/dL (12.0-15.6) Hematocrit 24.9% (35.0-46.0) Mean Corpuscular Volume 83.3fL (81-100) Mean Corpuscular Hemoglobin 29.8pg (27.0-35.0) Mean Corpuscular Hemoglobin Concent 35.7% (32.0-37.0) Red Cell Distribution Width 16.9% (12.3-15.4) Platelet Count 175bil/L (150-400) Neutrophils (%) (Auto) 90.0% (40-74) Lymphocytes (%) (Auto) 4.3% (14-46) Monocytes (%) (Auto) 4.3% (4-12) Eosinophils (%) (Auto) 0% (0-5) Basophils (%) (Auto) 0% (0-3) Sodium Level 136mEq/L (134-144) Potassium Level 3.9mEq/L (3.5-5.2) Chloride Level 101mEq/L (97-108) Carbon Dioxide Level 23mmol/L (18-29) Blood Urea Nitrogen 21mg/dL (6-24) Creatinine 0.56mg/dL (0.57-1.00) Estimat Glomerular Filtration Rate 160mL/min (>59) Glucose Level 124mg/dL (60-99) Calcium Level 8.7mg/dL (8.5-10.1) Total Bilirubin 0.6mg/dL (0.0-1.2) Aspartate Amino Transf (AST/SGOT) 25U/L (0-50) Alanine Aminotransferase (ALT/SGPT) 71U/L (0-32) Alkaline Phosphatase 67U/L (25-150) Total Protein 5.3g/dL (6.4-8.4) Albumin 3.6g/dL (3.4-5.0) Discharge Medications Discharge Medications Fish Oil/Dha/Epa (Fish Oil 1,200 mg Fish Oil) 1 Each Capsule 1 EACH PO DAILY ( Reported) Lecithin (Lecithin) 1,200 Mg Capsule 3,600 MG PO DAILY (Reported) Multivitamin (Once Daily) 1 Each Tablet 1 EACH PO DAILY (Reported) Omeprazole (Omeprazole) 20 Mg Tablet.dr 20 MG PO DAILY (Reported) Pyridoxine (Vitamin B-6) 50 Mg Tablet 300 MG PO DAILY (Reported) Sennosides (Senna Laxative) 25 Mg Tablet 25 MG PO BID (Reported) Sulfamethoxazole/Trimeth 800-160 mg (Bactrim DS 800-160 mg) 1 Each Tablet 1 TABLET PO MoWeFr Prescribed by: AZEB AMADOR MD Turmeric Root Extract (Turmeric) 500 Mg Capsule 500 MG PO DAILY (Reported) As needed Hydrocodone-Acetaminophen 5-325 mg (Hydrocodone-Acetaminophen 5-325 mg) 1 Each Tablet 1 TABLET PO Q4H PRN PRN For Pain (Reported) Lorazepam (Ativan) 0.5 Mg Tablet 0.5 MG PO Q4 PRN PRN FOR NAUSEA/VOMITING OR ANXIETY Prescribed by: AZEB AMADOR MD Ondansetron ODT (Zofran ODT) 8 Mg Tablet 8 MG PO q12 hrs prn PRN PRN For Nausea (Reported) Additional med instructions There have been no changes to your home medications Followup Plan Follow-up plan Please f/u with Dr. Manley on 01/09/17 Dr. Manley to address f/u labs, Echo, Sleep study and any other imaging at the follow up Discharge Diet: No restrictions Discharge Activity: No restrictions Patient Instructions Please f/u with Dr. Manley on 01/09/17 Time spent Greater than 30 minutes was spent in preparation of discharge with greater than 50% of that time dedicated to patient counseling and coordination of care. Gerri Gaston DO Jan 07, 2017 12:59
[2017-01-07] MEDS ORDERED: [UNRECOGNIZED DRUG - OTHER] IV ONE (14:00)
[2017-01-07] MEDS ORDERED: CYCLOPHOSPHAMIDE IV ONE (14:00)
--- NOTE | 2017-01-07 17:06 | NUR ---
Chemo Cytoxan admin as ordered after premeds, brisk blood return confirmed in PICC.
--- NOTE | 2017-01-07 18:10 | NUR ---
Discharge To home via private vehicle with at 18:10. PICC line in place. Pt expresses understanding of all discharge instructions, all belongings sent with pt.
--- NOTE | 2017-01-08 07:51 | PROG NOTE ---
[address] [address] PROGRESS NOTE PATIENT: BHUPINDER FOOTE : 1960 MR#: [id number] ADMIT: 01/03/2017 JOB ID: [id number] DATE: 01/07/2017 SUBJECTIVE: The patient is being seen today per hospital rounds. She carries a diagnosis of diffuse large B-cell lymphoma, nonterminal subtype currently on cycle three, day four of dose adjusted R-EPOCH. Patient today has noticed the recurrence of her neuropathy, although low-grade described as a subtle numbness sensation in the distal fingers and feet. She is able to do her daily activities without the physical limitations. It is nonpainful. She denies any new symptoms such as abdominal discomfort, constipation, fevers, chills, cough, and sore throat. The remainder of her review of systems is otherwise negative. PAST MEDICAL HISTORY: Significant for diffuse large B-cell lymphoma outlined in my clinic note dated November 21, 2016 under the [facility]. PHYSICAL EXAMINATION: Vital signs showing a weight of 74.7 kg, blood pressure 130/81, temperature 36, respiratory rate 16, and she is saturating at 99% on room air. She is A and O x3 in good spirits overall. Affect appropriate. PERRLA. Anicteric. COR was RRR. Lungs are clear to auscultation bilaterally. Abdomen nondistended, nontender, no hepatosplenomegaly. Lower extremities without any significant swelling or edema. Skin without further rashes lesions. Cranial nerves grossly intact, no focality. Strength 5/5, both upper and lower. LABORATORY DATA: From January 07, 2017 showing a white cell count of 2.1, hemoglobin of 8.9, platelet count of 175. ASSESSMENT AND PLAN: The patient is a very pleasant 56-year-old female on day four of cycle three of R-EPOCH chemotherapy showing a slight exacerbation of neuropathy grade 1. Otherwise the patient's ultrasound of liver showing only fatty infiltration changes, nonspecific hypoattenuation at the pancreatic head will be followed up with her restaging PET scan after cycle four. The plan is for the patient to be discharged later today. She already has a scheduled followup in our clinic on January 09, 2017. Labs that day will include a CBC, CMP, followed by her Neupogen shots. She had no further questions.
== END 2017-01-07 18:10 | disposition home or self-care (01) | DRG 847 ==
LOC: OSC 08:25
PROVIDERS: ADMIT Family Medicine; ATTEND Family Medicine
DX: Z51.11 Encounter for antineoplastic chemotherapy (principal); C83.30 Diffuse large B-cell lymphoma, unspecified site; Z79.52 Long term (current) use of systemic steroids; K21.9 Gastro-esophageal reflux disease without esophagitis; I34.0 Nonrheumatic mitral (valve) insufficiency; T45.1X5A Adverse effect of antineoplastic and immunosuppressive drugs, initial encounter; R60.0 Localized edema; D64.81 Anemia due to antineoplastic chemotherapy; Z51.5 Encounter for palliative care; I48.0 Paroxysmal atrial fibrillation

== ENCOUNTER 2017-01-24 08:37 | Inpatient (IN) | payer OTHER ==
[~2017-01-24] VITALS: Ht 167.6 cm; Wt 74.6 kg
[~2017-01-24 08:37] MED LIST changes: -ACET-2766 PO
[2017-01-24] MEDS ORDERED: Alum-Mag Hydrox-Simeth 30 mL Suspension PO PRN (09:30)
[2017-01-24] MEDS ORDERED: Polyethylene Glycol (PEG) 17 Gm Powder PO PRN (09:30)
[2017-01-24] MEDS ORDERED: Ondansetron 2 mg/mL 2 mL Inj IVPUSH PRN (09:30)
[2017-01-24 09:48] LABS: Mean Corpuscular Hemoglobin 29.4 pg (27.0-35.0); Mean Corpuscular Volume 87.3 fL (81-100); Platelet Count 300 bil/L (150-400)
[2017-01-24 10:04] VITALS: BP 112/78; PULSE 76; RESP 18; O2SAT 100
[2017-01-24] MEDS ORDERED: LORazepam 0.5 mg Tablet PO PRN (10:40)
[2017-01-24 10:41] LABS: BASOPHILS % (AUTO) 1 % (0-3); EOSINOPHILS % (AUTO) 0 % (0-5); MONOCYTES % (AUTO) 7 % (4-12); NEUTROPHILS % (AUTO) 79 % (40-74)
[2017-01-24] MEDS: Ondansetron 2 mg/mL 2 mL Inj IVPUSH SCH (10:57)
[2017-01-24] MEDS: predniSONE 20 mg Tablet PO SCH ×2 (11:01→19:15)
[2017-01-24 11:15] VITALS: PULSE 78
[2017-01-24 11:30] VITALS: BP 114/78; PULSE 67
[2017-01-24] MEDS ORDERED: RITUXIMAB IV ONE (11:30)
[2017-01-24] MEDS ORDERED: SODIUM CHLORIDE 0.9% IV ONE (11:30)
--- NOTE | 2017-01-24 12:03 | NUR ---
Admit: Pt admitted to floor at approx 0830. Made aware of plan for the day. Ekg and lab samples done. Vitals and labs within limits for treatment. Fluids started through Picc line. Iv therapy checked Picc. Pre-meds administered. Blood return in Picc documented. Rituximab 700mg started at 50 mls/hr and titrated up q30 mins. Vital signs within normal limits at this time.
[2017-01-24] MEDS ORDERED: Ondansetron 8 mg ODT Tablet PO PRN (12:20)
[2017-01-24] MEDS ORDERED: NIAC500T21 PO (13:54)
[2017-01-24] MEDS ORDERED: METH750T3 PO (14:08)
[2017-01-24] MEDS: VINCRISTINE IV SCH (14:52)
[2017-01-24] MEDS: DOXORUBICIN IV SCH (14:52)
[2017-01-24] MEDS: ETOPOSIDE IV SCH (14:52)
[2017-01-24] MEDS: [UNRECOGNIZED DRUG - OTHER] IV SCH (14:52)
--- NOTE | 2017-01-24 15:27 | PCM.HPMED ---
Subjective Date of Service Jan 24, 2017 Primary Provider: Admitting Physician: Arsh Manley DO Primary Care Physician: Glenroy Miranda PA-C Attending Physician: Arsh Manley DO Admit Status: Direct Admit, Admit to [facility] Team Chief Complaint: Chemotherapy History of Present Illness: Pt is 56-year-old pleasant female with past medical history of atrial fibrillation (that she has experienced during her first round of chemotherapy admission), mitral regurgitation, non-Hodgkin's lymphoma that has gone to her right breast and also right neck (diagnosed in end of August this year), DJD, GERD is presenting today as a direct admit from Dr. Manley came for R-Epoch chemotherapy cycle 4/5. She states that she has no recent fevers, chills, GI symptoms, urine symptoms, chest pain or back pain. Tolerated past infusions without significant adverse events except single episode of a-fib caught on tele. Pt saw cardiology and workup negative. Review of Systems: 12 point ROS negative except that in HPI Allergies Coded Allergies: No Known Allergies (Verified Allergy, Unknown, 12/13/16) Home Medications See med list. PMH mitral regurgitation, non-Hodgkin lymphoma (R Breasts, right neck B cell diffuse typw diagnosed end of August 2016), DJD bilateral knees Single episode of Atrial fibrillation that has not recurred. Surgical History Knee surgery azra, back surgery laminectomy Family History Father had cancer of head and neck Grandfather had bone cancer of unknown primary Patient until grandmother had ovarian cancer Social History Hx Alcohol Use: Yes Hx Substance Use: No Hx Tobacco Use: No Smoking Status: Never Smoker Exam Vital Signs Vital Sign - Last Date Time Temp Pulse Resp B/P Pulse Ox O2 Delivery O2 Flow Rate FiO2 01/24/17 11:30 67 114/78 01/24/17 10:04 36.5 18 100 Room Air Exam Gen: NAD, AOx4, HEENT: NCAT, PERRLA, EOMI, MMM, sclera anicteric. Neck: Soft, supple, no thyromegaly/JVD/LAD. Resp: CTAB, no R/R/W. CV: S1 S2, RRR, No M/R/G Abd: Soft, (+) BS, NT/ND, no guarding/rebound/organomegaly. Ext: +PP, No edema. Skin: warm/dry/intact Neuro/Psych: Cooperative, appr mood/affect. CN II-XII grossly intact. No focal deficits. Lymphatics: Enlarged anterior cervical lymph node 8 cm approximately in length 4 cm in width over her right neck no palpable supraclavicular supraclavicular lymph nodes Lab and Diagnostics Result Diagram: 01/24/17 0940 01/24/17 0940 12-lead ECG EKG- Sinus. QTC 422. Assessment & Plan This is a pleasant 56-year-old female with non-Hodgkin's diffuse large B-cell lymphoma presenting today for chemotherapy dose adjusted R-EPOCH Cycle 4/5 for total 5 days. Non-Hodgkin's lymphoma diffuse large B-cell lymphoma, non germinal cell type active ongoing, poa, active. -- chemotherapy dose adjusted R-EPOCH Cycle 4/5 for total 5 days --Dr. Manley he plans to do 1 dose of Rituxan followed by 4 days of etopiside, doxorubicin, and vinchristine, then after 4 days she will be receiving cyclophosphamide -- Chemotherapy precautions -- CBC, CMP in AM. - Cardiac Monitoring. -- Heparin subcutaneous Possible hx of atrial fibrillation- stable. Currently in sinus rhythm. -- Patient does have evidence of left atrial dilation on her echo that was done in 11/09 - Monitor for events while on cardiac monitoring. Chronic mitral regurgitation stable -- Mild MVP per 11/09 echo Chronic GERD presumed stable --resume med. CODE STATUS: Full Alternate decision-maker: Status- Patient is admitted under Inpatient status with expected length of stay greater than 2 midnights due to severity of presenting symptoms, risk of adverse event, and complexity of treatment plan. Pain Evaluation: Adequate Pain Control GI Prophylaxis: H2 dora VTE Prophylaxis: Sub-Q Heparin (Unfractionated) VTE Mechanical Devices: Intermittant Pneumatic CD Resuscitation Status: CPR: Attempt Resuscitation Cuco Cleveland MD Jan 24, 2017 15:27
[2017-01-24] MEDS: Heparin 5,000 Unit/mL Inj SUBQ SCH ×2 (16:06→23:32)
[2017-01-24] MEDS ORDERED: Sodium Chloride LOK Flush 10 mL Syringe IVFLUSH PRN ×2 (16:10)
--- NOTE | 2017-01-24 16:18 | NUR ---
Chemo: Rituximab infusion without any adverse side effects. Doxorubicin/Vincristine/Etoposide infusion started after double check with 2 RN. Pt refusing SCD's and Heparin at this time. Told of reasoning behind both of them, but pt continues to refuse.
[2017-01-24 16:47] VITALS: BP 104/71; PULSE 74; RESP 18; O2SAT 99
--- NOTE | 2017-01-24 18:15 | PCM.ADCARE ---
Advance Care Planning Note Purpose of Encounter: Code Status Parties in Attendance: Patient Decisional Capacity: Self Subjective: 56-year-old female with non-Hodgkin's diffuse large B-cell lymphoma presenting today for chemotherapy dose adjusted R-EPOCH Cycle 4/5 for total 5 days. Objective: Admitted for Chemotherapy dose adjusted R-EPOCH Cycle 4/5 for total 5 days. No major adverse events from previous session. Goals of Care Determinations: Code Status, goals from chemotherapy. Plan: Pursue Chemotherapy with expectation of remission of cancer. CODE STATUS: Business Supervisor Spent Adv.Care Plannin minutes Adv. Care Plan Documenation: See EMR for documentation Cuco Cleveland MD Jan 24, 2017 18:15
[2017-01-24 20:48] VITALS: BP 110/70; PULSE 100; RESP 18; O2SAT 98
[2017-01-24] MEDS: 0.9% Sodium Chloride 1,000 ML IV SCH (22:06)
[2017-01-25] VITALS (8 sets, daily range): BP systolic 91–118; BP diastolic 51–79; PULSE 65–94; RESP 16–20; O2SAT 97–99
--- NOTE | 2017-01-25 02:42 | NUR ---
Activity/Med Patient up walking multiple laps around unit independently. Gait steady. Denies lightheadedness/dizziness. Denies pain or discomfort. Refusing Heparin & SCDs at this time. Education provided on both. States she feels like shes up walking enough that she doesn't need them. Chemo infusing without any a/e so far this shift. Addendum: 01/25/17 at 0458 by CARRIE MANNING RN IV total for this shift: 2084 ml. Pump not cleared on previous shift.
[2017-01-25 05:02] LABS: EOSINOPHILS % (AUTO) 0 % (0-5); Mean Corpuscular Hemoglobin 29.2 pg (27.0-35.0); Mean Corpuscular Volume 85.4 fL (81-100); Platelet Count 330 bil/L (150-400)
[2017-01-25 05:18] LABS: BASOPHILS % (AUTO) 0 % (0-3); MONOCYTES % (AUTO) 0 % (4-12); NEUTROPHILS % (AUTO) 83 % (40-74)
[2017-01-25] MEDS: Heparin 5,000 Unit/mL Inj SUBQ SCH ×2 (08:20→16:13)
[2017-01-25] MEDS ORDERED: Trimethoprim-Sulfa 160 mg-800 mg Tablet PO SCH (08:30)
[2017-01-25] MEDS: predniSONE 20 mg Tablet PO SCH ×2 (08:53→18:18)
--- NOTE | 2017-01-25 10:37 | NUR ---
Social Work: Screening/Multidisciplinary Rounds D: EMR reviewed. Pt is a 56 y/o female admitted for scheduled chemo H&P. Pt's insurance is [facility] and PCP is Glenroy Miranda PA-C. Pt also sees Oncologist through [facility]. Pt does not screen in for assessment due to scheduled chemo. Pt's NOK is spouse Taz Duggan [phone]. Per multidisciplinary rounds, pt to discharge 01/28 after last chemo infusion. Pt is on day 2 of 4 rounds of chemo and will stay 1 additional day (5 days total) to complete the infusion. Pt has been up ambulating independently in the halls. Pt has completed DPOA/advanced directive ppw and SW encouraged pt to return a copy to the hospital. No SW needs identified at this time, no MD orders received. Pt's spouse to provide transport home on 01/28. SW will continue to follow for any needs that may arise. A: Pt who is independent at baseline and has capacity for self-care. P: Pt to discharge home after last chemo infusion on 01/28 with spouse to provide transport via POV. SW will continue to follow for needs or MD orders. CATIA Vaughan
[2017-01-25] MEDS: 0.9% Sodium Chloride 1,000 ML IV SCH (11:21)
[2017-01-25] MEDS: Ondansetron 2 mg/mL 2 mL Inj IVPUSH SCH (11:21)
--- NOTE | 2017-01-25 11:51 | NUR ---
Activity / Dizziness Pt up and walking laps in the hallway around the unit this a.m. Pt is cheerful and talkative. Pt reported mild dizziness after administration of 16 mg of IVP Zofran. No other complaints or problems reported now. Spouse at the bedside. Care continues.
--- NOTE | 2017-01-25 14:25 | PCM.PNMED ---
Subjective Date of Service Jan 25, 2017 Subjective No overnight events. tolerating chemo without issue so far. Has been ambulating regularly Exam Vital Signs Vital Sign - Last Date Time Temp Pulse Resp B/P Pulse Ox O2 Delivery O2 Flow Rate FiO2 01/25/17 11:57 36.5 68 18 118/79 99 Room Air Intake and Output 01/24/17 01/24/17 01/25/17 Cumulative From/Thru 15:00 23:00 07:00 01/24/17 09:19 - 01/25/17 05:32 Intake Total 400 ml 2684 ml 3084 ml Output Total 200 ml 1900 ml 2100 ml Balance 200 ml 784 ml 984 ml Intake Oral 400 ml 600 ml 1000 ml IV Total 2084 ml 2084 ml Output Urine Total 200 ml 1900 ml 2100 ml # Bowel Movements 2 2 Exam Gen: NAD, AOx4, HEENT: NCAT, PERRLA, EOMI, MMM, sclera anicteric. Neck: Soft, supple, no thyromegaly/JVD/LAD. Resp: CTAB, no R/R/W. CV: S1 S2, RRR, No M/R/G Abd: Soft, (+) BS, NT/ND, no guarding/rebound/organomegaly. Ext: +PP, No edema. Skin: warm/dry/intact Neuro/Psych: Cooperative, appr mood/affect. CN II-XII grossly intact. No focal deficits. Lymphatics: Enlarged anterior cervical lymph node 8 cm approximately in length 4 cm in width over her right neck no palpable supraclavicular supraclavicular lymph nodes IVs and Medications Medications Reviewed: Medications were reviewed in detail Lab and Diagnostics Result Diagram: 01/25/1744901/25/17 045 12-lead ECG EKG- Sinus. QTC 422. Assessment & Plan This is a pleasant 56-year-old female with non-Hodgkin's diffuse large B-cell lymphoma presenting today for chemotherapy dose adjusted R-EPOCH Cycle 4/5 for total 5 days started 01/24. Non-Hodgkin's lymphoma diffuse large B-cell lymphoma, non germinal cell type active ongoing, poa, active. -- chemotherapy dose adjusted R-EPOCH Cycle 4/5 for total 5 days --Dr. Manley he plans to do 1 dose of Rituxan followed by 4 days of etopiside, doxorubicin, and vinchristine, then after 4 days she will be receiving cyclophosphamide -- Chemotherapy precautions - Cardiac Monitoring. - Labs daily. Possible hx of atrial fibrillation- stable. Currently in sinus rhythm. -- Patient does have evidence of left atrial dilation on her echo that was done in 11/09 - cardiac monitoring- no events so far. Chronic mitral regurgitation stable -- Mild MVP per 11/09 echo Chronic GERD presumed stable --resume hm med. CODE STATUS: Full Alternate decision-maker: Status- Patient is admitted under Inpatient status with expected length of stay greater than 2 midnights due to severity of presenting symptoms, risk of adverse event, and complexity of treatment plan. GI Prophylaxis: H2 dora VTE Prophylaxis: Sub-Q Heparin (Unfractionated) VTE Mechanical Devices: Intermittant Pneumatic CD Resuscitation Status: CPR: Attempt Resuscitation Cuco Cleveland MD Jan 25, 2017 14:24
[2017-01-25] MEDS: [UNRECOGNIZED DRUG - OTHER] IV SCH (14:51)
[2017-01-25] MEDS: VINCRISTINE IV SCH (14:51)
[2017-01-25] MEDS: ETOPOSIDE IV SCH (14:51)
[2017-01-25] MEDS: DOXORUBICIN IV SCH (14:51)
--- NOTE | 2017-01-25 17:30 | NUR ---
Chemo Pt on day 2 of 5 day treatment. Receiving etoposide, doxorubicin, and vincristine 24-hour infusion. Infusion started at 1455 hrs. VSS. No c/o pain. Brisk blood return verified from PICC line just prior to start of infusion and again 2 hours later. Pt is pleasant and cooperative with care. Denies nausea. No reaction or chemo-related problems observed. Care continues
[2017-01-26] VITALS (10 sets, daily range): BP systolic 98–115; BP diastolic 55–69; PULSE 57–83; RESP 16–20; O2SAT 95–100
[2017-01-26] MEDS: Heparin 5,000 Unit/mL Inj SUBQ SCH ×3 (00:30→15:00)
[2017-01-26] MEDS: 0.9% Sodium Chloride 1,000 ML IV SCH ×2 (01:27→13:45)
--- NOTE | 2017-01-26 03:11 | NUR ---
ACTIVITY: Chemo infusion on going as above. Tolerating well. Denies pain or n/v. Was up ambulating around the hallway independently several times before HS. Pt. stated feeling hungry, offered several choices of food but Pt. only requested Brandon crackers. Ate several and tolerated well. A & O, VSS. On going care.
[2017-01-26 06:30] LABS: BASOPHILS % (AUTO) 0.1 % (0-3); EOSINOPHILS % (AUTO) 0 % (0-5); MONOCYTES % (AUTO) 3.1 % (4-12); Mean Corpuscular Hemoglobin 29.6 pg (27.0-35.0); Platelet Count 214 bil/L (150-400)
[2017-01-26] MEDS: predniSONE 20 mg Tablet PO SCH ×2 (08:50→17:33)
[2017-01-26] MEDS ORDERED: .Epic Conversion Completed XX PRN (13:20)
--- NOTE | 2017-01-26 14:02 | PCM.PNMED ---
Subjective Date of Service Jan 26, 2017 Subjective Tolerating chemo wo adverse effects. Ambulating frequently Exam Vital Signs Vital Sign - Last Date Time Temp Pulse Resp B/P Pulse Ox O2 Delivery O2 Flow Rate FiO2 01/26/17 10:22 36.5 66 18 115/67 99 Room Air Intake and Output 01/25/17 01/25/17 01/26/17 Cumulative From/Thru 15:00 23:00 07:00 01/24/17 09:19 - 01/26/17 06:46 Intake Total 3095 ml 1664 ml 7843 ml Output Total 2400 ml 1600 ml 6100 ml Balance 695 ml 64 ml 1743 ml Intake Oral 1940 ml 440 ml 3380 ml IV Total 1155 ml 1224 ml 4463 ml Output Urine Total 2400 ml 1600 ml 6100 ml # Bowel Movements 1 3 Exam Gen: NAD, AOx4, HEENT: NCAT, PERRLA, EOMI, MMM, sclera anicteric. Neck: Soft, supple, no thyromegaly/JVD/LAD. Resp: CTAB, no R/R/W. CV: S1 S2, RRR, No M/R/G Abd: Soft, (+) BS, NT/ND, no guarding/rebound/organomegaly. Ext: +PP, No edema. Skin: warm/dry/intact Neuro/Psych: Cooperative, appr mood/affect. CN II-XII grossly intact. No focal deficits. Lymphatics: Enlarged anterior cervical lymph node 8 cm approximately in length 4 cm in width over her right neck no palpable supraclavicular supraclavicular lymph nodes IVs and Medications Medications Reviewed: Medications were reviewed in detail Lab and Diagnostics Result Diagram: 01/26/17 0610 01/26/17 0610 12-lead ECG EKG- Sinus. QTC 422. Assessment & Plan This is a pleasant 56-year-old female with non-Hodgkin's diffuse large B-cell lymphoma presenting today for chemotherapy dose adjusted R-EPOCH Cycle 4/5 for total 5 days started 01/24. Day 3/5 today. Non-Hodgkin's lymphoma diffuse large B-cell lymphoma, non germinal cell type active ongoing, poa, active. -- chemotherapy dose adjusted R-EPOCH Cycle 4/5 for total 5 days --Dr. Manley he plans to do 1 dose of Rituxan followed by 4 days of etopiside, doxorubicin, and vinchristine, then after 4 days she will be receiving cyclophosphamide -- Chemotherapy precautions - Cardiac Monitoring. - Labs daily. Possible hx of atrial fibrillation- stable. Currently in sinus rhythm. -- Patient does have evidence of left atrial dilation on her echo that was done in 11/09 - cardiac monitoring- no events so far. Chronic mitral regurgitation stable -- Mild MVP per 11/09 echo Chronic GERD presumed stable --resume med. CODE STATUS: Full Alternate decision-maker: Status- Patient is admitted under Inpatient status with expected length of stay greater than 2 midnights due to severity of presenting symptoms, risk of adverse event, and complexity of treatment plan. GI Prophylaxis: H2 dora VTE Prophylaxis: Sub-Q Heparin (Unfractionated) VTE Mechanical Devices: Intermittant Pneumatic CD Resuscitation Status: CPR: Attempt Resuscitation Cuco Cleveland MD Jan 26, 2017 14:02
[2017-01-26] MEDS: Ondansetron 2 mg/mL 2 mL Inj IVPUSH SCH (14:43)
[2017-01-26] MEDS: DOXORUBICIN IV SCH (14:49)
[2017-01-26] MEDS: [UNRECOGNIZED DRUG - OTHER] IV SCH (14:49)
[2017-01-26] MEDS: ETOPOSIDE IV SCH (14:49)
[2017-01-26] MEDS: VINCRISTINE IV SCH (14:49)
--- NOTE | 2017-01-26 16:49 | NUR ---
Chemo / activity chemo hung @ 1445 with no issues. Blood return noted in PICC line. Pt declines N/V. Pt does states that she gets slightly dizzy for a few minutes after the administration of the Zofran Boluses'. States that she will contact staff if she is ever light headed while walking or getting up. Ambulates halls frequently with steady gait. Mentation positive and bright. Care continues
--- NOTE | 2017-01-26 22:36 | NUR ---
ACTIVITY/CHEMO: Pt. resting in bed states she had a good day today but was feeling tired, so went to bed and fell asleep, just woke up. Chemo infusion on going and tolerating well. Feeling fine and does not need anything at this time. Pt. A & O, all VSS. On going care.
[2017-01-28] MEDS ORDERED: Palonosetron 0.05 mg/mL 5 mL Inj IV ONE (11:00)
[2017-01-28] MEDS ORDERED: CYCLOPHOSPHAMIDE IV ONE (15:00)
[2017-01-28] MEDS ORDERED: [UNRECOGNIZED DRUG - OTHER] IV ONE (15:00)
== END 2017-01-27 01:30 | disposition admitted as inpatient to this hospital (09) | DRG 951 ==
LOC: OSC 08:37
PROVIDERS: ADMIT Specialist; ATTEND Internal Medicine
DX: R69 Illness, unspecified (principal)